=== PATIENT | female | born 1945 | race Caucasian/White ===

== ENCOUNTER 2020-04-21 14:39 | Outpatient (REF) | payer MEDICARE, SELFPAY ==
[2020-04-21 15:32] LABS: Creatinine Urine 34.57 mg/dL; Microalbumin Urine < 5.0 mg/L
== END 2020-04-21 14:40 | disposition home or self-care (01) ==
LOC: HO.LNP 14:39
PROVIDERS: Visit Provider Family Medicine
DX: I10 Essential (primary) hypertension (principal)
CPT/HCPCS: 82043

== ENCOUNTER 2020-05-07 09:49 | Outpatient (REF) | payer MEDICARE, SELFPAY ==
--- NOTE | ~2020-05-07 | XR_ITS ---
EXAMINATION: XR HIP, LEFT CLINICAL INFORMATION: Pain in left hip COMPARISON: None TECHNIQUE: Two views of the left hip. FINDINGS: Femoroacetabular Joint: There is flattening of the femoral head. There is also sclerosis and irregular lucency on both sides of the joint most evident in the femoral head. There is joint space narrowing and marginal osteophytes indicative of arthrosis. Postsurgical changes in the pelvis compatible with prior hernia repair. Surrounding bone and soft tissues are unremarkable. 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 If felt clinically necessary MRI of the hip may help differentiate these 2 possibilities.
--- NOTE | ~2020-05-07 | XR_ITS ---
EXAMINATION: XR KNEE, LEFT CLINICAL INFORMATION: Pain left knee COMPARISON: None TECHNIQUE: Four views of the left knee. FINDINGS: Bones and soft tissues are normal. No fracture or joint effusion. Alignment is anatomic. Joint spaces are well maintained. No abnormal soft tissue calcification. XR/XR knee LT 2V IMPRESSION: Normal left knee.
== END 2020-05-07 09:50 | disposition home or self-care (01) ==
LOC: HO.XRAY 09:49
PROVIDERS: PCP Family Medicine; Visit Provider Family Medicine
DX: M25.562 Pain in left knee (principal); M25.552 Pain in left hip
CPT/HCPCS: 73502; 73560

== ENCOUNTER 2020-05-31 07:39 | Outpatient (REF) | payer MEDICARE, SELFPAY ==
--- NOTE | ~2020-05-31 | XR_ITS ---
EXAMINATION: XR PELVIS CLINICAL INFORMATION: Hip pain COMPARISON: 05/07/2020 TECHNIQUE: AP view of the pelvis. FINDINGS: No acute fracture or dislocation. There are severe degenerative changes of the left hip. There is superior [id number] joint space narrowing with flattening of the femoral head. There is subchondral sclerosis with osteophyte formation and cyst formation. Mild to moderate degenerative change of the right hip with narrowing and osteophyte formation with subchondral sclerosis. The pelvic rim is intact. The sacroiliac joints and pubic symphysis are intact. Evidence of prior abdominal wall hernia repair. The bowel gas pattern is unremarkable. XR/XR pelvis 1-2V IMPRESSION: Severe degenerative changes of the left hip are similar to prior. Mild to moderate degenerative change of the right hip.
== END 2020-05-31 07:40 | disposition home or self-care (01) ==
LOC: HO.HOSX 07:39
PROVIDERS: Visit Provider Orthopaedic Surgery
DX: M16.12 Unilateral primary osteoarthritis, left hip (principal)
CPT/HCPCS: 72170; 99202

== ENCOUNTER → 2020-07-08 13:54 | Outpatient (BNVA) | payer MEDICARE, SELFPAY | PROVIDERS: PCP Family Medicine; Visit Provider Orthopaedic Surgery | DX: Z01.812 Encounter for preprocedural laboratory examination (principal); Z01.810 Encounter for preprocedural cardiovascular examination ==

== ENCOUNTER 2020-07-27 12:04 | Outpatient (REF) | payer MEDICARE, SELFPAY ==
[2020-07-27 13:51] LABS: Prothrombin Time 12.2 SEC (10.8-13.0)
[2020-07-27 13:53] LABS: Partial Thromboplastin Time 35.5 SEC (24.1-38.0)
[2020-07-27 14:17] LABS: Alanine Aminotransferase 15 U/L (0-31); Albumin Level 4.4 g/dL (3.5-5.0); Alkaline Phosphatase 86 U/L (39-117); Anion Gap 13 (12-20); Aspartate Amino Transferase 25 U/L (5-31); Bilirubin Total 1.5 mg/dL (0.0-1.0); Blood Urea Nitrogen 11 mg/dL (9-16); Calcium 9.7 mg/dL (8.4-10.2); Carbon Dioxide 28 mmol/L (22-29); Chloride 103 mmol/L (96-108); Estimated Glomerular Filt Rate > 60; Glucose Random 96 mg/dL (60-115); Potassium 4.2 mmol/L (3.3-5.1); Sodium 140 mmol/L (135-145); Total Protein 7.7 g/dL (6.5-8.0)
== END 2020-07-27 12:05 | disposition home or self-care (01) ==
LOC: HO.WFDLDS 12:04
PROVIDERS: Visit Provider Family Medicine
DX: Z01.810 Encounter for preprocedural cardiovascular examination (principal)
CPT/HCPCS: 36415; 80053; 85610; 85730

== ENCOUNTER 2020-07-30 11:30 | Outpatient (REF) | payer MEDICARE, SELFPAY ==
[2020-07-30 14:19] LABS: MANUAL DIFF FLAG NO
[2020-07-30 14:33] LABS: Basophils Percent Auto 0.8 % (0-2); Eosinophils Absolute Auto 0.2 X10*3/uL (0.0-0.4); Eosinophils Percent Auto 3.5 % (0-4); Hematocrit 46.8 % (37-47); Hemoglobin 15.7 g/dl (12.0-16.0); Imm Gran Abs Auto 0.01 X10*3/uL (0.00-0.03); Imm Gran Pct Auto 0.2 % (0.0-0.4); Lymphocytes Absolute Auto 2.1 X10*3/uL (1.2-4.9); Lymphocytes Percent Auto 43.1 % (20-40); Mean Corpuscular HGB Conc 33.5 g/dl (31.0-35.0); Mean Corpuscular Hemoglobin 32.7 pg (27.0-33.0); Mean Corpuscular Volume 97.5 fL (80-98); Mean Platelet Volume 9.2 fL (9.4-12.3); Monocytes Absolute Auto 0.5 X10*3/uL (0.1-1.2); Monocytes Percent Auto 10.8 % (2-11); Neutrophils Percent Auto 41.6 % (45-73); Platelet Count 232 X10*3/uL (160-400); Red Cell Distribution Width 11.7 % (11.0-16.0); White Blood Count 4.8 X10*3/uL (4.8-10.8)
== END 2020-07-30 11:31 | disposition home or self-care (01) ==
LOC: HO.WFDLDS 11:30
PROVIDERS: PCP Family Medicine; Visit Provider Family Medicine
DX: Z01.810 Encounter for preprocedural cardiovascular examination (principal)
CPT/HCPCS: 36415; 85025

== ENCOUNTER → 2020-08-05 13:50 | Outpatient (BNVA) | payer MEDICARE, SELFPAY | PROVIDERS: PCP Family Medicine; Visit Provider Physician Assistant | DX: M16.12 Unilateral primary osteoarthritis, left hip (principal) | CPT/HCPCS: 99212 ==

== ENCOUNTER 2020-08-10 11:35 | Inpatient (IN) | payer MEDICARE, SELFPAY ==
--- NOTE | 2020-08-04 15:02 | P.CONAN_ITS ---
Documented by User: Janki Perry 08/09/20 08:23 HPI - Anesthesia Eval Consult details Narrative: 75yo F for Left Hip Total Replacement PCP cleared at low risk BP up at PAT. Pt takes losartan prn SBP >140. Instructed to take daily leading up to surgery, hold DOS. PMFSH Active Problems Active Problems: All Active Problems (Updated 08/04/20 @ 09:33 by [place]) Essential hypertension (Acute) GERD (gastroesophageal reflux disease) (Acute) Hyperlipidemia (Acute) Left hip pain (Acute) Left knee pain (Acute) Depression (Acute) Preop cardiovascular exam (Acute) Past Medical History Medical History Arthritis COVID-19 vaccine administered Depression GERD (gastroesophageal reflux disease) HTN (hypertension) Hx of diverticulitis of colon Hyperlipidemia Family History Family History Father No problems noted. Mother No problems noted. Brother No problems noted. Sister No problems noted. Sister No problems noted. Son No problems noted. Family history of problems with anesthesia: No Surgical History Surgical History H/O colonoscopy History of esophagogastroduodenoscopy (EGD) History of incisional hernia repair History of partial colectomy History of surgery on left wrist History of Problems with Anesthesia: No Social History Social History Are you a primary pharmacy customer care specialist to a significant other at home: No Do you presently have visiting nurse or other home services: No Alcohol intake: never Patient Tobacco Use Status: Never used Tobacco Advance Directives Date on File: 08/10/20 Narrative Narrative: No recent illness. Activity limited to pain. No CP/SOB with minimal activity. Meds Allergies Allergy/AdvReac Type Severity Reaction Status Date / Time No Known Allergies Allergy Verified 07/27/20 11:11 Home Medications Medication Instructions Recorded Confirmed Last Taken Type escitalopram oxalate 10 mg PO DAILY PRN 08/05/20 08/05/20 Unknown History omeprazole 20 mg PO DAILY PRN 08/05/20 08/10/20 08/10/20 06:00 History Exam Exam Date and Time: August 04, 2020 1502 Pertinent Lab Results Pertinent Lab Results: Laboratory Tests 07/27/20 07/30/20 12:10 11:35 WBC 4.8 Hgb 15.7 Hct 46.8 Plt Count 232 Sodium 140 Potassium 4.2 Chloride 103 Carbon Dioxide 28 BUN 11 Creatinine 0.72 Laboratory Tests 08/05/20 13:45 Blood Type B Positive Antibody Screen NEGATIVE Narrative Narrative: EKG 06/2020 NSR ? LAE Airway Mallampati Class: I TM Dist: >3cm Denture: Upper Partial: Lower Heart: RRR Lungs: CTAB Assessment and Plan Assessment Anesthesia Assessment: Anesthesia Plan Discussed and PAT Visit Documented by User: Aura Ramirez 08/10/20 09:26 PMFSH Past Medical History Medical History Arthritis COVID-19 vaccine administered Depression GERD (gastroesophageal reflux disease) HTN (hypertension) Hx of diverticulitis of colon Hyperlipidemia Family History Family History Father No problems noted. Mother No problems noted. Brother No problems noted. Sister No problems noted. Sister No problems noted. Son No problems noted. Surgical History Surgical History H/O colonoscopy History of esophagogastroduodenoscopy (EGD) History of incisional hernia repair History of partial colectomy History of surgery on left wrist Social History Social History Are you a primary pharmacy customer care specialist to a significant other at home: No Do you presently have visiting nurse or other home services: No Alcohol intake: never Patient Tobacco Use Status: Never used Tobacco Advance Directives Date on File: 08/10/20 Meds Allergies Allergy/AdvReac Type Severity Reaction Status Date / Time No Known Allergies Allergy Verified 07/27/20 11:11 Home Medications Medication Instructions Recorded Confirmed Last Taken Type escitalopram oxalate 10 mg PO DAILY PRN 08/05/20 08/05/20 Unknown History omeprazole 20 mg PO DAILY PRN 08/05/20 08/10/20 08/10/20 06:00 History Assessment and Plan Assessment Anesthesia Assessment: Anesthesia Plan Discussed and Chart Reviewed Final Anesthetic Review NPO: Yes ASA Class: II Final Preanesthetic Review: No Changes in Pt Med Stat, Meds/Allgs Chart Reviewed, Consent Obtained/Reviewed and Anes Risks/Benef Reviewed Patient Risk: Low Procedure Risk: Intermediate Assessment/Block/Sedation in SS: Assess/Block/Sedation-SS Anesthetic Plan Anesthetic Plan: GA Disposition: Standard PACU
[2020-08-05 12:13] VITALS: BMI 26.2
[2020-08-05 12:28] VITALS: BP 183/105; PULSE 83; RESP 20; O2SAT 98
[2020-08-06 08:40] LABS: MRSA Nasal PCR NEGATIVE (Negative); SA Nasal PCR NEGATIVE (Negative)
[2020-08-10] VITALS (20 sets, daily range): BP systolic 101–180; BP diastolic 63–98; PULSE 75–101; RESP 14–20; TEMP 36–36.4; O2SAT 94–100
--- NOTE | ~2020-08-10 | XR_ITS ---
EXAMINATION: XR PELVIS CLINICAL INFORMATION: Left hip replacement COMPARISON: Previous x-ray most recent May 2020 TECHNIQUE: AP view of the pelvis. FINDINGS: There is a new left hip replacement in satisfactory position. No fracture or dislocation is seen. Bones of the pelvis are unremarkable. There is mild arthritis at the right hip joint. There is evidence of previous hernia repair. XR/XR pelvis 1-2V IMPRESSION: Satisfactory appearance of left hip replacement.
[2020-08-10] MEDS: oxyCODONE HCl ER 10 MG TAB.ER.12H PO (09:46)
[2020-08-10] MEDS: Gabapentin 600 MG TABLET PO (09:46)
[2020-08-10] MEDS: Lactated Ringers 1,000 ML 100 ML IVCONT (09:59)
[2020-08-10 10:02] LABS: COVID-19 Test Negative (Negative)
--- NOTE | 2020-08-10 10:14 | MHC.SHP ---
Pre-Procedural Eval Section A The patient is an INPATIENT: No Changes since office visit: Yes Patient answered all questions; No Cold of Flu in the past 2 weeks, No New Medical Problems and No Changes in Medication The History & Physical has been completed within 30 days and I have reviewed it.: Yes Section B Chief Complaint: Left Hip Osteoarthritis Allergies: Allergies Allergy/AdvReac Type Severity Reaction Status Date / Time No Known Allergies Allergy Verified 07/27/20 11:11 Plan I have reviewed the history and physical and performed a pertinent physical examination on my patient. No changes have occurred unless specified.
--- NOTE | 2020-08-10 10:40 | PC.NURSE ---
Call placed to lab for blood banding at 0900 when patient arrived. This RN spoke to Manolo. Additional call placed again at 1000, this RN spoke to Manolo, to question delay and remind them of banding that was needed. Lab arrived at [facility] for banding at 1035. Patients blood band information was not with them. Paperwork obtained and blood taken at 1043.
--- NOTE | 2020-08-10 12:51 | PM.OP ---
Brief Operative Note Date of Service: 08/10/20 Pre-op diagnosis: left hip OA Post-op diagnosis: same Procedure: Left OBINNA Implants: [place] trident2 52 with 20 deg liner Accolade2 #5 132deg, 36 +0 ceramic Surgeon: Donovan High MD Anesthesia: GETA and local Was an Director Of Digital Technology used for this Procedure?: Yes Director Of Digital Technology: Che Gottlieb Estimated blood loss (mL): 250 IV fluids (mL): 1,000 Pathology: other Condition: stable Disposition: PACU
[2020-08-10] MEDS: fentaNYL citrate/PF 100 MCG/2 ML VIAL 50 MCG IVPUSH ×3 (13:22→14:17)
[2020-08-10] MEDS: HYDROmorphone HCl 0.5 MG/0.5 ML SYRINGE IVPUSH ×3 (13:32→13:42)
[2020-08-10] MEDS: oxyCODONE HCl Immed Release 5 MG TABLET PO (13:52)
--- NOTE | 2020-08-10 16:20 | PM.IMCN ---
History of Present Illness Data of Consult Service Date: 08/10/20 Primary Care Provider: Roman Peterson MD HPI Reason for consult: htn 75F presented for elective left hip arthroplasty for ongoing left hip OA that was not improving with conservative management. patient reports that she is treated with losartan for her blood pressure, generally well controlled. she toelrated surgery well, denies pain, she is feeling somewhat weak. Review of Systems Cardiovascular: Cardiovascular: Reports no additional cardiovascular complaints Respiratory: Respiratory: Reports no additional respiratory complaints Gastrointestinal: Gastrointestinal: Reports no additional gastrointestinal complaints Musculoskeletal: Musculoskeletal: Reports no additional musculoskeletal complaints [facility] Medical History (Updated 08/10/20 @ 16:22 by Keo Flores MD) Arthritis COVID-19 vaccine administered Depression GERD (gastroesophageal reflux disease) HTN (hypertension) Hx of diverticulitis of colon Hyperlipidemia Family History Father No problems noted. Mother No problems noted. Brother No problems noted. Sister No problems noted. Sister No problems noted. Son No problems noted. Family history: reviewed and not pertinent Surgical History H/O colonoscopy History of esophagogastroduodenoscopy (EGD) History of incisional hernia repair History of partial colectomy History of surgery on left wrist Social History Are you a primary medicare insurance specialist to a significant other at home: No Do you presently have visiting nurse or other home services: No Alcohol intake: never Patient Tobacco Use Status: Never used Tobacco Use of substances other than those prescribed or required for medical reasons: No Have you been hit, kicked, punched, or otherwise hurt by someone within the past year? If so, by whom?: No Are you DNR?: No Advance Directives: Yes Advance Directives Information Provided: No (advised to bring copy day of surgery) Advance Directives on File: No Advance Directives Date on File: 08/10/20 Recently lost weight without trying: No Eating poorly because of decreased appetite: No Nutrition Risks: Surgical patient >75years Poor oral hygiene: No (full upper denture/lower partial denture) Meds Allergies Allergy/AdvReac Type Severity Reaction Status Date / Time No Known Allergies Allergy Verified 07/27/20 11:11 Active Medications: Current Medications Generic Name Dose Route Start Last Admin Trade Name Boaz PRN Reason Stop Dose Admin Acetaminophen 650 mg 08/10/20 16:09 Acetaminophen 325 Mg Tablet PO Q6H PRN Pain, Mild (Pain Scale 1-3) Celecoxib 200 mg 08/10/20 21:00 Celecoxib 200 Mg Capsule PO BID [facility] Docusate Sodium 100 mg 08/10/20 21:00 Docusate Sodium 100 Mg Capsule PO BID [facility] Fentanyl 50 mcg 08/10/20 13:40 08/10/20 14:17 Fentanyl Citrate/Pf 100 Mcg/2 Ml Vial IVPUSH 50 mcg Q5M PRN Administration Pain, Severe (Pain Scale 7-10) Hydromorphone HCl 0.25 mg 08/10/20 16:09 Hydromorphone Hcl 0.5 Mg/0.5 Ml Syringe IVPUSH Q4H PRN Pain, Severe (Pain Scale 7-10) Dextrose/Sodium Chloride 1,000 mls @ 80 mls/hr 08/10/20 16:09 D51/2ns IVCONT .[id number] [facility] Cefazolin Sodium/Dextrose 2 gm in 50 mls @ 100 mls/hr 08/10/20 16:50 Ancef IV 08/10/20 17:19 POSTOP ONE Naloxone HCl 0.2 mg 08/10/20 16:09 Naloxone Hcl 0.4 Mg/Ml Vial IVPUSH Q2M PRN Excessive sedation or RR < 8 Ondansetron HCl 4 mg 08/10/20 16:09 Ondansetron Hcl 4 Mg/2 Ml Vial IVPUSH Q8H PRN Nausea and Vomiting Oxycodone HCl 5 mg 08/10/20 16:09 Oxycodone Hcl Immed Release 5 Mg Tablet PO Q4H PRN Pain, Moderate (Pain Scale 4-6 Sodium Chloride 3 ml 08/10/20 16:09 0.9 % Sodium Chloride Flush 3 Ml [facility]ringe [facility] Home Medications Medication Instructions Recorded Confirmed Last Taken Type escitalopram oxalate 10 mg PO DAILY PRN 08/05/20 08/05/20 Unknown History omeprazole 20 mg PO DAILY PRN 08/05/20 08/10/20 08/10/20 06:00 History Physical Exam Vital Signs and Narrative: Vital Signs: Last Vital Signs Temp 96.8 F 08/10/20 15:55 Pulse 82 08/10/20 15:55 Resp 20 08/10/20 15:55 BP 145/83 H 08/10/20 15:55 Pulse Ox 100 08/10/20 15:55 Body Mass Index 26.2 General: AO X 3, no acute distress Resp: CTA bilateral CVS: S1,S2,RRR GI: soft, non tender, non distended Neuro: motor grossly intact Psych: appropriate affect Results Labs Labs: Laboratory Results - last 24 hr 08/10/20 09:05 COVID-19 ([facility]) Negative COVID-19 Clin Com See Note Imaging Radiologist's Impressions: Impressions Pelvis X-Ray 08/10/20 11:19 IMPRESSION: Satisfactory appearance of left hip replacement. Assessment and Plan (1) HTN (hypertension): Status: Acute 75F admitted for elective left hip arthroplasty left hip arthroplasty management per ortho HTN restart losartan if persistently bp elevated, otherwise, will hold perioperatively depression/anxiety lexapro GERD PPI
[2020-08-10] MEDS: Dextrose 5 % and 0.45 % NaCl 1,000 ML 80 ML IVCONT (16:28)
[2020-08-10] MEDS: ceFAZolin Sodium/Dextrose,Iso 2 GM/50 ML PIGGYBACK IV (17:03)
[2020-08-10] MEDS: ondansetron HCL 4 MG/2 ML VIAL IVPUSH (17:41)
[2020-08-10] MEDS: Celecoxib 200 MG CAPSULE PO (20:50)
[2020-08-10] MEDS: Docusate Sodium 100 MG CAPSULE PO (20:51)
[2020-08-11] VITALS (7 sets, daily range): BP systolic 96–123; BP diastolic 45–75; PULSE 67–89; RESP 16–19; TEMP 35.8–37.1; O2SAT 95–98
[2020-08-11] MEDS: oxyCODONE HCl Immed Release 5 MG TABLET PO ×5 (02:58→20:40)
[2020-08-11] MEDS: Dextrose 5 % and 0.45 % NaCl 1,000 ML 80 ML IVCONT ×2 (05:39→16:25)
[2020-08-11 07:03] LABS: MANUAL DIFF FLAG NO
[2020-08-11 07:12] LABS: Basophils Percent Auto 0.2 % (0-2); Eosinophils Percent Auto 0.3 % (0-4); Hematocrit 36.9 % (37-47); Hemoglobin 12.3 g/dl (12.0-16.0); Imm Gran Abs Auto 0.02 X10*3/uL (0.00-0.03); Imm Gran Pct Auto 0.3 % (0.0-0.4); Lymphocytes Absolute Auto 1.3 X10*3/uL (1.2-4.9); Lymphocytes Percent Auto 20.2 % (20-40); Mean Corpuscular HGB Conc 33.3 g/dl (31.0-35.0); Mean Corpuscular Hemoglobin 33.2 pg (27.0-33.0); Mean Corpuscular Volume 99.5 fL (80-98); Monocytes Absolute Auto 1.1 X10*3/uL (0.1-1.2); Monocytes Percent Auto 17.1 % (2-11); Neutrophils Percent Auto 61.9 % (45-73); Platelet Count 200 X10*3/uL (160-400); Red Blood Count 3.71 X10*6/uL (4.20-5.50); Red Cell Distribution Width 11.9 % (11.0-16.0); White Blood Count 6.5 X10*3/uL (4.8-10.8)
[2020-08-11] MEDS: Celecoxib 200 MG CAPSULE PO ×2 (07:26→20:39)
[2020-08-11] MEDS: Escitalopram Oxalate 10 MG TABLET PO (07:26)
[2020-08-11] MEDS: Docusate Sodium 100 MG CAPSULE PO ×2 (07:26→20:39)
[2020-08-11 07:41] LABS: Anion Gap 10 (12-20); Blood Urea Nitrogen 10 mg/dL (9-16); Calcium 8.2 mg/dL (8.4-10.2); Carbon Dioxide 26 mmol/L (22-29); Chloride 101 mmol/L (96-108); Creatinine Clr Calc Pharmacy 72.5; Estimated Glomerular Filt Rate > 60; Glucose Fasting 120 mg/dL (60-99); Potassium 4.5 mmol/L (3.3-5.1); Sodium 132 mmol/L (135-145)
--- NOTE | 2020-08-11 07:44 | P.PNOP_ITS ---
Subjective Subjective Date of Service: 08/11/20 Interval history: POD1 s/p left hip arthroplasty with Dr. High. Patient was working with [employer] up and walking and sitting into a chair. No overnight events. Pain is well managed. Physical Exam Vital Signs: Vital Signs: Last Vital Signs Temp 97.8 F 08/11/20 04:00 Pulse 76 08/11/20 04:00 Resp 16 08/11/20 04:00 BP 96/60 08/11/20 04:00 Pulse Ox 98 08/11/20 04:00 Oxygen Flow Rate 2 08/10/20 13:40 Body Mass Index 26.2 Const: General: cooperative, healthy appearing and no acute distress Resp: Effort & Inspection: normal respiratory effort and able to speak in complete sentences Cardio: Rate: regular rate Peripheral pulses: Peripheral pulses 2+ throughout GI: Palpation (GI): Soft to palpation Skin: Lesions: no lesions Rashes: no rashes Extrem: Other: Left hip Aquacel is clean, dry, and intact. No redness or ecchymosis. Patient is able to dorsiflex and plantarflex. Sensation intact. Progress Note: A&P Assessment and plan (1) Status post total replacement of left hip: Status: Acute Assessment and Plan: Continue pain mgmnt Begin ASA for dvt ppx begin PT for left OBINNA Dispo planning-Pending PT eval, pain mgmnt Fall Risk Details Current Medications: Current Medications Generic Name Dose Route Start Last Admin Trade Name Freq PRN Reason Stop Dose Admin Acetaminophen 650 mg 08/10/20 16:09 Acetaminophen 325 Mg Tablet PO Q6H PRN Pain, Mild (Pain Scale 1-3) Celecoxib 200 mg 08/10/20 21:00 08/11/20 07:26 Celecoxib 200 Mg Capsule PO 200 mg BID [facility] Administration Docusate Sodium 100 mg 08/10/20 21:00 08/11/20 07:26 Docusate Sodium 100 Mg Capsule PO 100 mg BID KAI Administration Escitalopram Oxalate 10 mg 08/10/20 16:20 08/11/20 07:26 Escitalopram Oxalate 10 Mg Tablet PO 10 mg DAILY PRN Administration Anxiety Fentanyl 50 mcg 08/10/20 13:40 08/10/20 14:17 Fentanyl Citrate/Pf 100 Mcg/2 Ml Vial IVPUSH 50 mcg Q5M PRN Administration Pain, Severe (Pain Scale 7-10) Hydromorphone HCl 0.25 mg 08/10/20 16:09 Hydromorphone Hcl 0.5 Mg/0.5 Ml Syringe IVPUSH Q4H PRN Pain, Severe (Pain Scale 7-10) Dextrose/Sodium Chloride 1,000 mls @ 80 mls/hr 08/10/20 16:09 08/11/20 07:30 D51/2ns IVCONT Infused .[id number] [facility] Infusion Naloxone HCl 0.2 mg 08/10/20 16:09 Naloxone Hcl 0.4 Mg/Ml Vial IVPUSH Q2M PRN Excessive sedation or RR < 8 Omeprazole 20 mg 08/10/20 16:20 Omeprazole 20 Mg Capsule.Dr PO DAILY PRN Acid Reflux Ondansetron HCl 4 mg 08/10/20 16:09 08/10/20 17:41 Ondansetron Hcl 4 Mg/2 Ml Vial IVPUSH 4 mg Q8H PRN Administration Nausea and Vomiting Oxycodone HCl 5 mg 08/10/20 16:08/11/20 07:27 Oxycodone Hcl Immed Release 5 Mg Tablet PO 5 mg Q4H PRN Administration Pain, Moderate (Pain Scale 4-6 Sodium Chloride 3 ml 08/10/20 16:09 08/11/20 07:29 0.9 % Sodium Chloride Flush 3 Ml Syringe IVFLUSH Not Given QSHIFT [facility] Time Spent With Patient Time: Total time spent is greater than 50% in coordination of care (as documented) at patient's floor/unit and/or counseling patient: Time with patient: less than 15 minutes Progress Note: Quality Stroke Does the patient have a stroke diagnosis?: No VTE Prior VTE?: No VTE Risk Level:: Surgical - moderate VTE Device Contraindication: N/A - Device Ordered VTE Drug Contraindication: N/A - Med Ordered Procedures Date of Service Date of Service: 08/11/20
[2020-08-11] MEDS: Aspirin 325 MG TABLET PO ×2 (11:01→20:40)
--- NOTE | 2020-08-11 11:19 | HO.POSTANES ---
Post Anesthesia Evaluation Post Anesthesia Evaluation Vital Signs: Vital Signs Temp Pulse Resp BP Pulse Ox 08/11/20 07:44 83 112/75 95 08/11/20 07:43 98.0 F 83 18 112/75 95 08/11/20 04:00 97.8 F 76 16 96/60 98 08/10/20 23:24 97.5 F 75 16 101/63 100 Anesthesia: General Mental Status: Awake Pain Control: Satisfactory Nausea/Vomiting: None Hydration: Adequate Anesthesia-Related Issues: No Anes. Related Issues
--- NOTE | 2020-08-11 11:58 | MHC.CM.PN ---
IMM 08/11/20, EMR REVIEWED PT ADMITTED S/P LEFT HIP ARTHROPLASTY, CM MET W/PT VIA [employer], PER PT SHE LIVES [place], PT REPORTS SOMEONE FROM SURGEONS OFFICE CAME TO HER HOME AND DID A HOME EVAL AND GAVE HER A LIST OF FOLLOW-UP APPTS, PER PT SHE ONLY NEEDS HOME OT/PT AND NO NURSING HOME, PT DOES NOT HAVE WALKER AT HOME AND THOUGHT [facility], WHEN TOLD [facility] UNABLE TO PROVIDE WALKER SHE REPORTED SHE WOULD CALL HER SISTER WHO WILL BRING HER A WALKER, PT HAS NO PREFERENCE IN [employer] AND REFERRAL WILL BE MADE TO [facility]. D/C PLAN: ANTIC 08/12/20 HOME W/HOME PT/OT, FAMILY FOR TRANSPORT PCP: GINI CALLAHAN
--- NOTE | 2020-08-11 16:00 | HO.PM.IMPN ---
Subjective Subjective Date of Service: 08/11/20 Interval History: Feels comfortable, no complaints Physical Exam Vital Signs: Vital Signs: Last Vital Signs Temp 96.5 F L 08/11/20 15:26 Pulse 89 08/11/20 15:26 Resp 19 08/11/20 15:26 BP 123/68 08/11/20 15:26 Pulse Ox 97 08/11/20 15:26 Oxygen Flow Rate 2 08/10/20 13:40 Body Mass Index 26.2 Const: Other: Constitutional : Alert, oriented, not in distress Cardiovascular : RRR, S1 S2, no lower extremity edema Respiratory : Good bilateral air entry, no crackles, wheezes or rhonchi Gastrointestinal: soft, lax, Normal bowel sounds, Non tender Skin : Warm/Dry, Knee in dressing Neurological : Alert & oriented x3, No focal deficit Objective Data Current Medications Generic Name Dose Route Start Last Admin Trade Name Freq PRN Reason Stop Dose Admin Acetaminophen 650 mg 08/10/20 16:09 Acetaminophen 325 Mg Tablet PO Q6H PRN Pain, Mild (Pain Scale 1-3) Aspirin 325 mg 08/11/20 09:00 08/11/20 11:01 Aspirin 325 Mg Tablet PO 325 mg BID KAI Administration Celecoxib 200 mg 08/10/20 21:00 08/11/20 07:26 Celecoxib 200 Mg Capsule PO 200 mg BID KAI Administration Docusate Sodium 100 mg 08/10/20 21:00 08/11/20 07:26 Docusate Sodium 100 Mg Capsule PO 100 mg BID KAI Administration Escitalopram Oxalate 10 mg 08/10/20 16:20 08/11/20 07:26 Escitalopram Oxalate 10 Mg Tablet PO 10 mg DAILY PRN Administration Anxiety Fentanyl 50 mcg 08/10/20 13:40 08/10/20 14:17 Fentanyl Citrate/Pf 100 Mcg/2 Ml Vial IVPUSH 50 mcg Q5M PRN Administration Pain, Severe (Pain Scale 7-10) Hydromorphone HCl 0.25 mg 08/10/20 16:09 Hydromorphone Hcl 0.5 Mg/0.5 Ml Syringe IVPUSH Q4H PRN Pain, Severe (Pain Scale 7-10) Dextrose/Sodium Chloride 1,000 mls @ 80 mls/hr 08/10/20 16:09 08/11/20 07:30 D51/2ns IVCONT Infused .[id number] [facility] Infusion Naloxone HCl 0.2 mg 08/10/20 16:09 Naloxone Hcl 0.4 Mg/Ml Vial IVPUSH Q2M PRN Excessive sedation or RR < 8 Omeprazole 20 mg 08/10/20 16:20 Omeprazole 20 Mg Capsule.Dr PO DAILY PRN Acid Reflux Ondansetron HCl 4 mg 08/10/20 16:09 08/10/20 17:41 Ondansetron Hcl 4 Mg/2 Ml Vial IVPUSH 4 mg Q8H PRN Administration Nausea and Vomiting Oxycodone HCl 5 mg 08/10/20 16:09 08/11/20 11:01 Oxycodone Hcl Immed Release 5 Mg Tablet PO 5 mg Q4H PRN Administration Pain, Moderate (Pain Scale 4-6 Sodium Chloride 3 ml 08/10/20 16:09 08/11/20 15:18 0.9 % Sodium Chloride Flush 3 Ml Syringe IVFLUSH Not Given QSHIFT [facility] Labs CBC & Chem 7: 08/11/20 06:48 08/11/20 06:48 Labs: Laboratory Results - last 24 hr 08/11/20 08/11/20 06:48 06:48 WBC 6.5 RBC 3.71 L D Hgb 12.3 D Hct 36.9 L D MCV 99.5 H MCH 33.2 H MCHC 33.3 RDW 11.9 Plt Count 200 MPV 9.0 L Immature Gran % (Auto) 0.3 Neut % (Auto) 61.9 Lymph % (Auto) 20.2 [place] % (Auto) 17.1 H Eos % (Auto) 0.3 Baso % (Auto) 0.2 Lymph # (Auto) 1.3 [place] # (Auto) 1.1 Eos # (Auto) 0.0 Baso # (Auto) 0.0 Abs Immat Gran (auto) 0.02 Absolute Neuts (auto) 4.0 Absolute Nucleated RBC 0.000 Nucleated RBC % (auto) 0.0 Sodium 132 L Potassium 4.5 Chloride 101 Carbon Dioxide 26 Anion Gap 10 L BUN 10 Creatinine 0.64 Estim Creat Clear Calc 72.5 Estimated GFR > 60 Fasting Glucose 120 H Calcium 8.2 L D Quality Stroke Does the patient have a stroke diagnosis?: No VTE Prior VTE?: No VTE Risk Level:: Surgical - moderate VTE Device Contraindication: N/A - Device Ordered VTE Drug Contraindication: N/A - Med Ordered Assessment and Plan (1) HTN (hypertension): Status: Acute Assessment and Plan: 75F admitted for elective left hip arthroplasty left hip arthroplasty management per ortho HTN restart losartan at discharge depression/anxiety continue lexapro GERD PPI
[2020-08-11] MEDS: Acetaminophen 325 MG TABLET 650 MG PO (16:23)
--- NOTE | 2020-08-11 17:56 | PC.NURSE ---
Pt assessed with the assist of VIKTOR Potter interpreting in taiwanese. Pt medicated for pain with po oxycodone and tylenol with good effect. Reviewed activity restrictions with pt. Pt verbalized understanding
[2020-08-12] VITALS: BP 105/66; PULSE 86; RESP 16; TEMP 36.6; O2SAT 94
[2020-08-12 03:45] VITALS: BP 95/59; PULSE 87; RESP 16; TEMP 36.5; O2SAT 93
[2020-08-12 06:21] LABS: MANUAL DIFF FLAG NO
[2020-08-12 07:03] LABS: Anion Gap 10 (12-20); Basophils Percent Auto 0.1 % (0-2); Blood Urea Nitrogen 11 mg/dL (9-16); Calcium 8.1 mg/dL (8.4-10.2); Carbon Dioxide 25 mmol/L (22-29); Chloride 101 mmol/L (96-108); Creatinine Clr Calc Pharmacy 71.4; Eosinophils Percent Auto 0.4 % (0-4); Estimated Glomerular Filt Rate > 60; Glucose Fasting 122 mg/dL (60-99); Hematocrit 33.4 % (37-47); Hemoglobin 11.3 g/dl (12.0-16.0); Imm Gran Abs Auto 0.02 X10*3/uL (0.00-0.03); Imm Gran Pct Auto 0.3 % (0.0-0.4); Lymphocytes Absolute Auto 1.1 X10*3/uL (1.2-4.9); Lymphocytes Percent Auto 15.2 % (20-40); Mean Corpuscular HGB Conc 33.8 g/dl (31.0-35.0); Mean Corpuscular Hemoglobin 32.8 pg (27.0-33.0); Mean Corpuscular Volume 96.8 fL (80-98); Mean Platelet Volume 9.3 fL (9.4-12.3); Monocytes Absolute Auto 1.4 X10*3/uL (0.1-1.2); Monocytes Percent Auto 18.9 % (2-11); Neutrophils Absolute Auto 4.7 X10*3/uL (2.0-8.3); Neutrophils Percent Auto 65.1 % (45-73); Platelet Count 199 X10*3/uL (160-400); Potassium 4.4 mmol/L (3.3-5.1); Red Blood Count 3.45 X10*6/uL (4.20-5.50); Red Cell Distribution Width 11.9 % (11.0-16.0); Sodium 132 mmol/L (135-145); White Blood Count 7.2 X10*3/uL (4.8-10.8)
--- NOTE | 2020-08-12 07:30 | P.DS_ITS ---
DS: Providers Provider Date of Service: 08/12/20 Date of admission: 08/10/20 11:35 Primary care physician: Roman Peterson MD Consults: 08/10/20 16:09 Consult to Hospitalist Routine Consulting Provider: Hospitalist Reason For Exam: post op medical management DS: Diagnosis Discharge Diagnosis (1) Status post total replacement of left hip: Status: Acute Problem details: Ms. Nicholson is a 75 yo female who presented to the office with ongoing left pain. 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 She continued to have difficulty with abulation and daily activities; therefore she consented to move forward with left total hip arthroplasty. DS: Medications Discharge Medications Home Medications: Home Medications Medication Instructions Recorded Confirmed escitalopram oxalate 10 mg PO DAILY PRN 08/05/20 08/05/20 omeprazole 20 mg PO DAILY PRN 08/05/20 08/10/20 Previous Rx's Medication Instructions Recorded losartan 50 mg tablet 50 mg PO DAILY 30 Days #30 tab 05/19/20 acetaminophen 650 mg PO Q6H PRN 30 Days #240 tab 08/12/20 aspirin 325 mg PO BID 42 Days #84 tab 08/12/20 celecoxib 200 mg PO BID 30 Days #60 cap 08/12/20 docusate sodium 100 mg PO BID 30 Days #60 cap 08/12/20 oxycodone 5 mg PO Q4H PRN 7 Days #42 tab 08/12/20 DS: Summary Hospital Course Hospital Course: The patient underwent a successful left total hip arthroplasty, they were transferred to PACU and then to the floor to recover. During their stay, their vitals were stable, afebrile at 97.7. Labs were unremarkable, H/H 11.3/33.4. POD 1 they were started on Aspirin 325mg po bid for DVT ppx, they also received Physical Therapy services twice a day. Prior to discharge, their dressing was changed, incision clean dry and intact, new Aquacel dressing applied and the plan was to be discharged home with VNA services. Time Spent with Patient Time attestation: Total time spent providing and/or coordinating discharge services: Discharge coordination time: Less than 30 minutes Quality: Stroke Does the patient have a stroke diagnosis?: No Physical Exam Vital Signs: Vital Signs: Last Vital Signs Temp 97.7 F 08/12/20 03:45 Pulse 87 08/12/20 03:45 Resp 16 08/12/20 03:45 BP 95/59 L 08/12/20 03:45 Pulse Ox 93 08/12/20 03:45 Oxygen Flow Rate 2 08/10/20 13:40 Body Mass Index 26.2 Const: General: cooperative, healthy appearing and no acute distress Resp: Effort & Inspection: normal respiratory effort and able to speak in complete sentences Cardio: Rate: regular rate Peripheral pulses: Peripheral pulses 2+ throughout GI: Palpation (GI): Soft to palpation Skin: Lesions: no lesions Rashes: no rashes Extrem: Other: Left hip Aquacel dressing clean, dry, and intact. [place] intact. No drainage. Patient is able to dorsifelx and platarflex. Pedal pulse intact. Sensation intact. DS: Data Data Completed and Pending Pending studies at discharge: Pending at discharge 08/10/20 12:37 Surgical [PTH] Routine Labs on day of discharge: Laboratory Results - last 24 hr 08/11/20 08/12/20 08/12/20 06:48 05:59 05:59 WBC 7.2 RBC 3.45 L Hgb 11.3 L Hct 33.4 L MCV 96.8 MCH 32.8 MCHC 33.8 RDW 11.9 Plt Count 199 MPV 9.3 L Immature Gran % (Auto) 0.3 Neut % (Auto) 65.1 Lymph % (Auto) 15.2 L [place] % (Auto) 18.9 H Eos % (Auto) 0.4 Baso % (Auto) 0.1 Lymph # (Auto) 1.1 L [place] # (Auto) 1.4 H Eos # (Auto) 0.0 Baso # (Auto) 0.0 Abs Immat Gran (auto) 0.02 Absolute Neuts (auto) 4.7 Absolute Nucleated RBC 0.000 Nucleated RBC % (auto) 0.0 Sodium 132 L 132 L Potassium 4.5 4.4 Chloride 101 101 Carbon Dioxide 26 25 Anion Gap 10 L 10 L BUN 10 11 Creatinine 0.64 0.65 Estim Creat Clear Calc 72.5 71.4 Estimated GFR > 60 > 60 Fasting Glucose 120 H 122 H Calcium 8.2 L D 8.1 L Discharge Plan Discharge Patient Disposition: Home Health Service Discharge Diagnosis: s/p left OBINNA Referrals: Kristen,Roman, MD [Primary Care Provider] - 1 Week Discharge Medications: New celecoxib 200 mg Capsule 200 mg PO BID 30 Days Qty: 60 RF: 0 acetaminophen 325 mg Tablet 650 mg PO Q6H PRN (Reason: Pain, Mild (Pain Scale 1-3)) 30 Days Qty: 240 RF: 0 aspirin 325 mg Tablet 325 mg PO BID 42 Days Qty: 84 RF: 0 docusate sodium 100 mg Capsule 100 mg PO BID 30 Days Qty: 60 RF: 0 oxycodone 5 mg Tablet 5 mg PO Q4H PRN (Reason: Pain, Moderate (Pain Scale 4-6) 7 Days Qty: 42 RF: 0 Continued omeprazole 20 mg capsule,delayed release(DR/EC) 20 mg PO DAILY PRN (Reason: Acid Reflux) RF: 0 escitalopram oxalate 10 mg tablet 10 mg PO DAILY PRN (Reason: Anxiety) RF: 0 losartan 50 mg tablet 50 mg PO DAILY 30 Days Qty: 30 RF: 2 Discharge Orders: Discharge Order (Routine); Ordered 08/12/20 Ordered By: Temitope Leach Diet: advance to usual diet Activity on Discharge: Use cane or walker Stand Alone Forms: Patient Portal Discharge page Care Plan Goals: Restor fxn of lt hip Health Concerns: none Plan of Treatment: Physical Therapy for total hip arthroplasty: posterior precautions, gait training, ROM, strength Limit stair climbing No showering, no tub bath-keep dressing clean, dry and intact No driving x6 weeks Continue Aspirin for 6 weeks Follow up with [facility] in 2 weeks Assessment: stable for d/c
--- NOTE | 2020-08-12 07:44 | W.MHC.F2F ---
Service Date Service Date: 08/12/20 Encounter Encounter: Pt. is considered homebound due to recent surgery. Unable to drive, poor balance, poor gait mechanics. Reasons for Services Reason for physical therapy: home safety and mobility, therapeutic exercises, restore joint function and ADL training Reason for occupational therapy: home safety and mobility, therapeutic exercises, restore joint function and ADL training Homebound: Leaving the home is medically contraindicated at this time without the asist of a device and/or another person due th the listed conditions above and below. Reason homebound: unsteady gait / fall risk, pain with ambulation, pain with transfers and poor balance / fall risk Homebound supporting statement: Pt. is considered homebound due to recent surgery. Unable to drive, poor balance, poor gait mechanics. Certification: Based on the above findings, I certify that this patient is confined to the home and needs intermittent intermediate care, physical therapy and/or speech therapy, or continues to need occupational therapy. The patient is under my care, and I have initiated the establishment of the plan of care. The patient will be followed by a physician who will periodically review the plan of care.
[2020-08-12 07:46] VITALS: BP 119/62; PULSE 91; RESP 18; TEMP 36.5; O2SAT 98
[2020-08-12] MEDS: Aspirin 325 MG TABLET PO (07:56)
[2020-08-12] MEDS: oxyCODONE HCl Immed Release 5 MG TABLET PO (07:56)
[2020-08-12] MEDS: Docusate Sodium 100 MG CAPSULE PO (07:57)
[2020-08-12] MEDS: Celecoxib 200 MG CAPSULE PO (07:59)
[2020-08-12 08:25] VITALS: BP 119/62; PULSE 91; O2SAT 98
--- NOTE | 2020-08-12 09:56 | P.OP_ITS ---
Operative Note Operative Note Date of Service: 08/10/20 Narrative: Pre-op diagnosis: left hip OA Post-op diagnosis: same Procedure: Left OBINNA Implants: Fillmore trident2 52 with 20 deg liner Accolade2 #5 132deg, 36 +0 ceramic Surgeon: Donovan High MD Anesthesia: GETA and local Was an Administrative Support Technician used for this Procedure?: Yes Administrative Support Technician: Che Gottlieb Estimated blood loss (mL): 250 IV fluids (mL): 1,000 Pathology: other Condition: stable Disposition: PACU Procedure in detail: Patient was brought into the operating room and placed in a right lateral decubitus position. All bony prominences were well padded and the limb was prepped and draped in standard sterile fashion. Time-out was called to identify proper site procedure proper surgeon IV antibiotics and 1 g of trans to make acid were administered. I began by making a curvilinear incision over the posterolateral aspect of the greater trochanter. Dissection was taken down to the tensor fascia which was incised in line with the incision and a Charnley retractor was placed. Hip was internally rotated and the external rotators were identified. The vessels were cauterized and a full-thickness capsular/external rotator layer was developed starting just proximal to the piriformis. Dull Hohmann retractor was placed underneath the neck in the hip was dislocated. The head was defrormed and eburnated. A neck cut was made 1 cm proximal to the lesser trochanter and the head and neck were removed and measured on the back table. Placed my anterior-posterior acetabular retractors and performed a labrectomy. I then sequentially reamed up to a size _52_ . THe superior cup was worn therefore I impacted reaming in the superior acetabulm and impacted a __52 cup_ at approximately 45 degrees of inclination and 25 degrees of version. Given the superior wear I placed 2 acetabular screws using standard AO technique. I then placed a 20 degree posterior lipped liner and turned my attention to the femur. All I used cautery to identify the piriformis start site and used this as a starting point for my david cutter. I then used a Charnley awl to identify the canal and a curved curette to remove the lateral bone. I then sequentially broached in the patient's natural version to a size __5__ had and placed my trial implants. I took the hip through range of motion with a +0 head and I was very satisfiedwith the stability and length. Therefore removed all instrumentation copiously irrigated placed my final femoral implant. I again took the hip through range of motion and was satisfied with the stability and length using a +0 head and so my final femoral head was placed. I then irrigated for 3 minutes with iodine and placed 1 g of local TXA. I then performed a capsular closure with FiberWire, Shira's fascia with 0 Vicryl, subcuticular with 2-0 vicryl and skin with jewell. Patient was placed into a sterile dressing. Radiographs were obtained at the completion of the case and I was satisfied with the component position. Patient was extubated brought to the recovery room in stable condition.
--- NOTE | 2020-08-12 10:02 | HO.PM.IMPN ---
Subjective Subjective Date of Service: 08/12/20 Interval History: Feels comfortable, no complaints Dressed and ready to go home BP soft this morning Physical Exam Vital Signs: Vital Signs: Last Vital Signs Temp 97.7 F 08/12/20 07:46 Pulse 91 08/12/20 08:25 Resp 18 08/12/20 07:46 BP 119/62 08/12/20 08:25 Pulse Ox 98 08/12/20 08:25 Oxygen Flow Rate 2 08/10/20 13:40 Body Mass Index 26.2 Const: Other: Constitutional : Alert, oriented, not in distress Cardiovascular : RRR, S1 S2, no lower extremity edema Respiratory : Good bilateral air entry, no crackles, wheezes or rhonchi Gastrointestinal: soft, lax, Normal bowel sounds, Non tender Skin : Warm/Dry, Knee in dressing Neurological : Alert & oriented x3, No focal deficit Objective Data Current Medications Generic Name Dose Route Start Last Admin Trade Name Freq PRN Reason Stop Dose Admin Acetaminophen 650 mg 08/10/20 16:09 08/11/20 16:23 Acetaminophen 325 Mg Tablet PO 650 mg Q6H PRN Administration Pain, Mild (Pain Scale 1-3) Aspirin 325 mg 08/11/20 09:00 08/12/20 07:56 Aspirin 325 Mg Tablet PO 325 mg BID KAI Administration Celecoxib 200 mg 08/10/20 21:00 08/12/20 07:59 Celecoxib 200 Mg Capsule PO 200 mg BID KAI Administration Docusate Sodium 100 mg 08/10/20 21:00 08/12/20 07:57 Docusate Sodium 100 Mg Capsule PO 100 mg BID KAI Administration Escitalopram Oxalate 10 mg 08/10/20 16:20 08/11/20 07:26 Escitalopram Oxalate 10 Mg Tablet PO 10 mg DAILY PRN Administration Anxiety Fentanyl 50 mcg 08/10/20 13:40 08/10/20 14:17 Fentanyl Citrate/Pf 100 Mcg/2 Ml Vial IVPUSH 50 mcg Q5M PRN Administration Pain, Severe (Pain Scale 7-10) Hydromorphone HCl 0.25 mg 08/10/20 16:09 Hydromorphone Hcl 0.5 Mg/0.5 Ml Syringe IVPUSH Q4H PRN Pain, Severe (Pain Scale 7-10) Dextrose/Sodium Chloride 1,000 mls @ 80 mls/hr 08/10/20 16:09 08/12/20 07:11 D51/2ns IVCONT Infused .[id number] KAI Infusion Naloxone HCl 0.2 mg 08/10/20 16:09 Naloxone Hcl 0.4 Mg/Ml Vial IVPUSH Q2M PRN Excessive sedation or RR < 8 Omeprazole 20 mg 08/10/20 16:20 Omeprazole 20 Mg Capsule.Dr PO DAILY PRN Acid Reflux Ondansetron HCl 4 mg 08/10/20 16:09 08/10/20 17:41 Ondansetron Hcl 4 Mg/2 Ml Vial IVPUSH 4 mg Q8H PRN Administration Nausea and Vomiting Oxycodone HCl 5 mg 08/10/20 16:09 08/12/20 07:56 Oxycodone Hcl Immed Release 5 Mg Tablet PO 5 mg Q4H PRN Administration Pain, Moderate (Pain Scale 4-6 Sodium Chloride 3 ml 08/10/20 16:09 08/12/20 07:57 0.9 % Sodium Chloride Flush 3 Ml Syringe IVFLUSH Not Given QSHIFT [facility] Labs CBC & Chem 7: 08/12/20 05:59 08/12/20 05:59 Labs: Laboratory Results - last 24 hr 08/12/20 08/12/20 05:59 05:59 WBC 7.2 RBC 3.45 L Hgb 11.3 L Hct 33.4 L MCV 96.8 MCH 32.8 MCHC 33.8 RDW 11.9 Plt Count 199 MPV 9.3 L Immature Gran % (Auto) 0.3 Neut % (Auto) 65.1 Lymph % (Auto) 15.2 L [place] % (Auto) 18.9 H Eos % (Auto) 0.4 Baso % (Auto) 0.1 Lymph # (Auto) 1.1 L [place] # (Auto) 1.4 H Eos # (Auto) 0.0 Baso # (Auto) 0.0 Abs Immat Gran (auto) 0.02 Absolute Neuts (auto) 4.7 Absolute Nucleated RBC 0.000 Nucleated RBC % (auto) 0.0 Sodium 132 L Potassium 4.4 Chloride 101 Carbon Dioxide 25 Anion Gap 10 L BUN 11 Creatinine 0.65 Estim Creat Clear Calc 71.4 Estimated GFR > 60 Fasting Glucose 122 H Calcium 8.1 L Quality Stroke Does the patient have a stroke diagnosis?: No VTE Prior VTE?: No VTE Risk Level:: Surgical - moderate VTE Device Contraindication: N/A - Device Ordered VTE Drug Contraindication: N/A - Med Ordered Assessment and Plan (1) HTN (hypertension): Status: Acute Assessment and Plan: 75F admitted for elective left hip arthroplasty left hip arthroplasty management per ortho HTN restart losartan at home depression/anxiety continue lexapro GERD PPI
[2020-08-12 11:04] VITALS: BP 119/62; PULSE 91; O2SAT 98
[2020-08-12 11:36] VITALS: BP 115/69; PULSE 84; RESP 17; TEMP 36.6; O2SAT 98
--- NOTE | 2020-08-12 14:57 | MHC.CM.PN ---
PT DISCHARGED HOME W/HVNA FOR HOME OT/PT W/START OF CARE Sunday08/12/20, FAMILY PROVIDED TRANSPORT
== END 2020-08-12 13:59 | disposition home health service (06) | DRG 470 ==
LOC: HO.SSSA 11:42 → HO.S3 14:10
PROVIDERS: Physician Assistant; Admitting Provider Orthopaedic Surgery; PCP Family Medicine; Visit Provider Orthopaedic Surgery
PROC: 0SRB0JA Replacement of Left Hip Joint with Synthetic Substitute, Uncemented, Open Approach (ICD-10-PCS; CPT 27130; principal; 2020-08-10 10:40)
DX: M16.12 Unilateral primary osteoarthritis, left hip (principal); K21.9 Gastro-esophageal reflux disease without esophagitis; I10 Essential (primary) hypertension; E78.5 Hyperlipidemia, unspecified; F32.9 Major depressive disorder, single episode, unspecified; F41.9 Anxiety disorder, unspecified; Z20.822 Contact with and (suspected) exposure to COVID-19; Z79.899 Other long term (current) drug therapy
CPT/HCPCS: 27130; 36415; 72170; 80048; 85025; 86850; 86900; 86901; 87635; 87640; 87641; 88304; 88311; 97110; 97116; 97162; 97166; 97530; 97535; C1713; C1776; J0131; J0690; J1100; J1170; J2250; J2405; J3010

== ENCOUNTER → 2020-08-26 13:07 | Outpatient (BNVA) | payer MEDICARE, SELFPAY | PROVIDERS: Visit Provider Physician Assistant | DX: Z47.1 Aftercare following joint replacement surgery (principal); Z96.642 Presence of left artificial hip joint | CPT/HCPCS: 99212 ==

== ENCOUNTER 2020-09-23 12:34 | Outpatient (REF) | payer MEDICARE, SELFPAY ==
--- NOTE | ~2020-09-23 | XR_ITS ---
EXAMINATION: 1. PELVIS. 2. LEFT HIP. CLINICAL INFORMATION: Pain. COMPARISON: Pelvis August 10, 2020, May 31, 2020. Left hip May 07, 2020 TECHNIQUE: 1. Pelvis. Frontal view of pelvis. 2. Left hip. Frontal and oblique view of left hip. FINDINGS: 1. Pelvis. Status post left hip replacement. Orthopedic components in position. No fracture or radiographic evidence of loosening of the prosthesis. Mild joint narrowing of the right hip joint without bone spur or bone erosion. No change since prior study August 10, 2020. Mild degenerative spondylosis lower lumbar spine. Status post hernia repair with surgical coils along the superior and inferior pubic ramus and symphysis pubis. Surgical sutures in the central pelvis. Surgical clips right side of pelvis. Moderate volume of stool in colon. No distended loop of bowel. Nonobstructive bowel pattern. 2. Left hip. Status post left hip replacement. Orthopedic components in position. No fracture or radiographic evidence of loosening of the prosthesis. No fracture. No dislocation. XR/XR pelvis 1-2V IMPRESSION: 1. Pelvis. Status post left hip replacement. Postsurgical changes of pelvis. Mild degenerative change of right hip and lower lumbar spine. 2. Left hip. Status post hip replacement. No fracture or dislocation. No radiographic evidence of loosening.
--- NOTE | ~2020-09-23 | XR_ITS ---
EXAMINATION: 1. PELVIS. 2. LEFT HIP. CLINICAL INFORMATION: Pain. COMPARISON: Pelvis August 10, 2020, May 31, 2020. Left hip May 07, 2020 TECHNIQUE: 1. Pelvis. Frontal view of pelvis. 2. Left hip. Frontal and oblique view of left hip. FINDINGS: 1. Pelvis. Status post left hip replacement. Orthopedic components in position. No fracture or radiographic evidence of loosening of the prosthesis. Mild joint narrowing of the right hip joint without bone spur or bone erosion. No change since prior study August 10, 2020. Mild degenerative spondylosis lower lumbar spine. Status post hernia repair with surgical coils along the superior and inferior pubic ramus and symphysis pubis. Surgical sutures in the central pelvis. Surgical clips right side of pelvis. Moderate volume of stool in colon. No distended loop of bowel. Nonobstructive bowel pattern. 2. Left hip. Status post left hip replacement. Orthopedic components in position. No fracture or radiographic evidence of loosening of the prosthesis. No fracture. No dislocation. XR/XR hip LT 1V IMPRESSION: 1. Pelvis. Status post left hip replacement. Postsurgical changes of pelvis. Mild degenerative change of right hip and lower lumbar spine. 2. Left hip. Status post hip replacement. No fracture or dislocation. No radiographic evidence of loosening.
== END 2020-09-23 12:35 | disposition home or self-care (01) ==
LOC: HO.HOSX 12:34
PROVIDERS: Visit Provider Orthopaedic Surgery
DX: T84.84XA Pain due to internal orthopedic prosthetic devices, implants and grafts, initial encounter (principal); Z96.642 Presence of left artificial hip joint
CPT/HCPCS: 72170; 73501; 73502; 99212

== ENCOUNTER 2020-10-28 17:00 | Outpatient (RCR) | payer MEDICARE, SELFPAY ==
--- NOTE | 2020-09-16 15:25 | MHC.PT.EP ---
[facility] [place] Office [place] Office [place] Office [address] Mika Zuleat [address] [phone] F: [phone] F: [phone] F: [phone] F: [phone] Physical Therapy Plan of Care Date of Evaluation: Date of Surgery: 08/10/20 Diagnosis: left OBINNA Assessment: 75 y/o F referred for PT following L posterior OBINNA on 08/10/20. Pt received home PT services for 3 weeks following surgery. Pt presents with discomfort and difficulty with prolonged walking, navigating stairs, and sleeping. Examination shows decreased L hip strength, limited L hip abduction ROM, pain at 90 degrees L hip flexion, poor L quad contraction with mild extensor lag with L SLR, impaired bed mobility, and impaired gait mechanics with increased L hip IR, L foot pronation, L genu valgus, and limited pelvic mobility. Reviewed hip precautions. Recommend PT 2x/week for 6 weeks to address impairments, implement HEP, and optimize functional mobility. Frequency and Duration: The patient will be seen 2x/week for 6 weeks Short Term Goals: 3 weeks: 1. I with HEP 2. Pt will demonstrate improved bed mobility while maintaining hip precautions 3. Pt will demonstrate improved L quad activation with L SLR with no extensor lag 4. Pt will increase L hip abduction ROM by >5 degrees to match R LE [facility] Goals: 6 weeks: 1. I with HEP and self-management of sx 2. Pt will be able to navigate stairs using step-through pattern with LRAD and <3/10 pain 3. Pt will be able to ambulate >30 min with <3/10 pain Treatment Plan: Modalities to reduce pain, spasms and effusion. Manual therapy to restore motion and function. Therapeutic exercise to improve strength and flexibility. Neuromuscular re-education for posture and balance. Therapeutic activities to return to functional activities of daily living. Electronically signed by: Ruthie Lozada PT Please sign and return to therapist. Thank you for your referral.
--- NOTE | 2020-10-28 18:09 | MHC.PT.DC ---
[facility] [place] Office [place] Office [place] Office [address] Mika Zuleta [address] [phone] F: [phone] F: [phone] F: [phone] F: [phone] Physical Therapy Discharge Report Diagnosis: left OBINNA Date of Surgery: 08/10/20 Date of Evaluation: 09/16/20 Date of Discharge: 10/28/20 Treatments to Date: 8 Cancellations to Date: 4 No Shows to Date: 0 Discharge Status: Achieved Goals Improved Function Independent with HEP Discharge Summary: Pt has made excellent progress since SOC and has made great progress toward her STGs and LTGs. She has improved strength throughout her L hip and does not have pain. She is able to ambulate community distances without AD and navigates stairs with reciprocal pattern when a railing on R side is available. She is I with HEP and is being D/C from skilled PT services at this time. Provided pt with printed, updated HEP program and YTB this date. Pt reports no further questions or concerns for PT at this time. Electronically signed by: Tia Weeks, PT, DPT Please sign and return to therapist. Thank you for your referral.
== END 2020-10-28 18:09 | disposition home or self-care (01) ==
LOC: HO.PT 17:00
PROVIDERS: PCP Family Medicine; Visit Provider Physician Assistant
DX: Z96.642 Presence of left artificial hip joint (principal)
CPT/HCPCS: 97110; 97112; 97150; 97161; 97530

== ENCOUNTER → 2020-11-04 13:23 | Outpatient (BNVA) | payer MEDICARE, SELFPAY | PROVIDERS: Visit Provider Orthopaedic Surgery | DX: Z47.1 Aftercare following joint replacement surgery (principal); Z96.642 Presence of left artificial hip joint | CPT/HCPCS: 99212 ==

== ENCOUNTER 2021-07-08 10:49 | Outpatient (REF) | payer MEDICARE, SELFPAY ==
[2021-07-08 13:29] LABS: MANUAL DIFF FLAG NO
[2021-07-08 13:31] LABS: Eosinophils Absolute Auto 0.2 X10*3/uL (0.0-0.4); Eosinophils Percent Auto 3.6 % (0-4); Hematocrit 45.1 % (37.0-47.0); Hemoglobin 15.3 g/dl (12.0-16.0); Imm Gran Abs Auto 0.01 X10*3/uL (0.00-0.03); Imm Gran Pct Auto 0.2 % (0.0-0.4); Lymphocytes Absolute Auto 1.8 X10*3/uL (1.2-4.9); Lymphocytes Percent Auto 43.9 % (20-40); Mean Corpuscular HGB Conc 33.9 g/dl (31.0-35.0); Mean Corpuscular Hemoglobin 32.7 pg (27.0-33.0); Mean Corpuscular Volume 96.4 fL (80.0-98.0); Monocytes Absolute Auto 0.4 X10*3/uL (0.1-1.2); Monocytes Percent Auto 10.2 % (2-11); Neutrophils Absolute Auto 1.7 x10*3/uL (2.0-8.3); Neutrophils Percent Auto 41.1 % (45-73); Platelet Count 247 X10*3/uL (160-400); Red Blood Count 4.68 X10*6/uL (4.20-5.50); Red Cell Distribution Width 12.6 % (11.0-16.0); White Blood Count 4.1 X10*3/uL (4.8-10.8)
[2021-07-08 13:35] LABS: Appearance Urine CLOUDY; Color Urine YELLOW; Glucose Urine UA NEG (NEG); Leukocyte Esterase Urine 2+ (NEG); Nitrite Urine POS (NEG); PH 5.5 (5.0-8.0); Specific Gravity - Urine 1.025 (1.005-1.025); Urine Blood TRACE (NEG); Urine Ketones NEG (NEG); Urine Protein NEG (NEG-TRACE)
[2021-07-08 13:40] LABS: Amorphous Sediment Urine 4+ /LPF
[2021-07-08 13:41] LABS: Alanine Aminotransferase 10 U/L (0-31); Albumin Level 4.2 g/dL (3.5-5.0); Alkaline Phosphatase 75 U/L (39-117); Anion Gap 12 (12-20); Aspartate Amino Transferase 17 U/L (5-31); Blood Urea Nitrogen 10 mg/dL (9-16); Calcium 9.4 mg/dL (8.4-10.2); Carbon Dioxide 28 mmol/L (22-29); Chloride 103 mmol/L (96-108); Cholesterol 226 mg/dL; Estimated Glomerular Filt Rate > 60; Glucose Fasting 91 mg/dL (60-99); HDL Cholesterol 69 mg/dL; LDL Cholesterol Calculated 141 mg/dl; Potassium 3.8 mmol/L (3.3-5.1); Sodium 139 mmol/L (135-145); Squamous Epithelial Cell Urine TRACE /LPF; Total Protein 7.5 g/dL (6.5-8.0); Triglycerides 83 mg/dL; WBC Urine 30-49 /HPF (0-4)
[2021-07-08 13:42] LABS: Bacteria Urine TRACE /LPF; RBC Urine 0 /HPF (0)
[2021-07-08 14:04] LABS: TSH reflex Free T4 0.53 uIU/mL (0.32-4.0)
== END 2021-07-08 10:50 | disposition home or self-care (01) ==
LOC: HO.WFDLDS 10:49
PROVIDERS: Visit Provider Family Medicine
DX: Z00.00 Encounter for general adult medical examination without abnormal findings (principal)
CPT/HCPCS: 36415; 80053; 80061; 81001; 84443; 85025

== ENCOUNTER 2021-07-14 14:44 | Outpatient (REF) | payer MEDICARE, SELFPAY ==
--- NOTE | ~2021-07-14 | MM_ITS ---
EXAMINATION: BONE DENSITOMETRY CLINICAL INDICATION: Encounter for screening for osteoporosis. COMPARISON: None (current study represents initial baseline exam). TECHNIQUE: Using a Scoopshot DXA System (software version: 13.1) manufactured by [employer], dual-energy x-ray absorptiometry was performed of the lumbar spine and right hip. The images are of good technical quality. Summary results are attached. FINDINGS: AP SPINE L1-L3 (excluding L4): The data of L1-L4 has been changed to exclude the L4 vertebral body, because degenerative changes at this level may cause overestimation of lumbar spine density. BMD 0.791 g/cm2, Z-score -1.5, T-score -3.2, osteoporosis. RIGHT FEMUR, NECK: BMD 0.778 g/cm2, Z-score 0.0, T-score -1.9, osteopenia. RIGHT FEMUR, TOTAL: BMD 0.778 g/cm2, Z-score -0.1, T-score -1.8, osteopenia. IDENTIFIED RISK FACTORS: Osteoporosis, family history (parental hip fracture) history of fracture (adult), menopause. HISTORY OF FRACTURE: Wrist. MEDICATIONS: None listed. MM/XR DEXA axial skeleton IMPRESSION: 1. DIAGNOSIS: Osteoporosis based on the lowest T-score value of -3.2 in the lumbar spine applying World Health Organization criteria. 2. 10-YEAR FRACTURE RISK PREDICTION, FRAX: According to the guidelines, FRAX calculation should only be performed on patients in the osteopenia bone density category. Therefore, FRAX was not performed on this patient. 3. Treatment Recommendations: NOF guidelines recommend consideration for treatment in postmenopausal women and men age 50 and older presenting with the following: -A hip or vertebral (clinical or morphometric) fracture. -T-score less than or equal to -2.5 at the femoral neck or spine after appropriate evaluation to exclude secondary causes. -Low bone mass at the hip or spine and a 10-year fracture probability by FRAX of greater than or equal to 3% for hip fracture or greater than or equal to 20% for major osteoporotic fracture based on the [place] adapted WHO algorithm. 4. Other Recommendations: All treatment decisions require clinical judgment and consideration of individual patient factors, including patient preferences, comorbidities, previous drug use, risk factors not captured in the FRAX model (e.g. frailty, falls, vitamin D deficiency, increased bone turnover, interval significant decline in bone density) and possible under or overestimation of fracture risk by FRAX. Additional medical evaluation for secondary cause of low bone mineral density may be appropriate. FUTURE SCAN RECOMMENDATION: People with diagnosed cases of osteoporosis or at high risk for fracture should have regular bone mineral density tests. For patients eligible for Medicare, routine testing is allowed once every 2 years. The testing frequency can be increased to one year for patients who have rapidly progressing disease, those who are receiving or discontinuing medical therapy to restore bone mass, or have additional risk factors.
== END 2021-07-14 14:45 | disposition home or self-care (01) ==
LOC: HO.MAMMO 14:44
PROVIDERS: Visit Provider Family Medicine
DX: Z13.820 Encounter for screening for osteoporosis (principal); Z78.0 Asymptomatic menopausal state; M81.0 Age-related osteoporosis without current pathological fracture
CPT/HCPCS: 77080

== ENCOUNTER 2022-06-23 09:43 | Outpatient (REF) | payer MEDICARE, SELFPAY ==
[2022-06-23 11:56] LABS: Appearance Urine Clear; Color Urine Yellow; Glucose Urine UA Negative (Negative); Leukocyte Esterase Urine Small (1+) (Negative); Nitrite Urine Negative (Negative); PH 6.5 (5.0-9.0); Specific Gravity - Urine <= 1.005 (1.005-1.025); UMIC TRIGGER UA YES; Urine Blood Negative (Negative); Urine Ketones Negative (Negative); Urine Protein Negative (Neg-Trace)
[2022-06-23 11:59] LABS: Bacteria Urine 4+ (None Seen); Hyaline Casts Urine 0-2 /LPF (0-2); RBC Urine 0-2 /HPF (0-2); Squamous Epithelial Cell Urine 0-2 /HPF (0-2)
== END 2022-06-23 09:44 | disposition home or self-care (01) ==
LOC: HO.WFDLNP 09:43
PROVIDERS: Visit Provider Family Medicine
DX: R82.71 Bacteriuria (principal)
CPT/HCPCS: 81001; 87086; 87088; 87186

== ENCOUNTER 2022-07-22 09:32 | Outpatient (REF) | payer MEDICARE, SELFPAY ==
[2022-07-22 10:37] LABS: MANUAL DIFF FLAG NO
[2022-07-22 10:42] LABS: Eosinophils Absolute Auto 0.2 X10*3/uL (0.0-0.4); Eosinophils Percent Auto 4.2 % (0-4); Hematocrit 47.4 % (37.0-47.0); Imm Gran Abs Auto 0.01 X10*3/uL (0.00-0.03); Imm Gran Pct Auto 0.2 % (0.0-0.4); Lymphocytes Absolute Auto 1.5 X10*3/uL (1.2-4.9); Lymphocytes Percent Auto 37.4 % (20-40); Mean Corpuscular HGB Conc 33.8 g/dl (31.0-35.0); Mean Corpuscular Hemoglobin 32.8 pg (27.0-33.0); Mean Corpuscular Volume 97.1 fL (80.0-98.0); Mean Platelet Volume 9.1 fL (9.4-12.3); Monocytes Absolute Auto 0.4 X10*3/uL (0.1-1.2); Monocytes Percent Auto 10.1 % (2-11); Neutrophils Absolute Auto 1.9 x10*3/uL (2.0-8.3); Neutrophils Percent Auto 47.1 % (45-73); Platelet Count 227 X10*3/uL (160-400); Red Blood Count 4.88 X10*6/uL (4.20-5.50); Red Cell Distribution Width 12.2 % (11.0-16.0)
[2022-07-22 11:14] LABS: Appearance Urine Clear; Color Urine Yellow; Glucose Urine UA Negative (Negative); Leukocyte Esterase Urine Small (1+) (Negative); Nitrite Urine Negative (Negative); UMIC TRIGGER UA YES; Urine Blood Negative (Negative); Urine Ketones Negative (Negative); Urine Protein Negative (Neg-Trace)
[2022-07-22 11:25] LABS: Alanine Aminotransferase 10 U/L (0-31); Albumin Level 4.2 g/dL (3.5-5.0); Alkaline Phosphatase 71 U/L (39-117); Anion Gap 15 (12-20); Aspartate Amino Transferase 18 U/L (5-31); Bilirubin Total 0.9 mg/dL (0.0-1.0); Blood Urea Nitrogen 11 mg/dL (9-16); Calcium 9.6 mg/dL (8.4-10.2); Carbon Dioxide 25 mmol/L (22-29); Chloride 105 mmol/L (96-108); Cholesterol 234 mg/dL; Estimated Glomerular Filt Rate > 60; Glucose Fasting 87 mg/dL (60-99); HDL Cholesterol 66 mg/dL; LDL Cholesterol Calculated 148 mg/dl; Potassium 4.1 mmol/L (3.3-5.1); Sodium 141 mmol/L (135-145); Total Protein 7.5 g/dL (6.5-8.0); Triglycerides 101 mg/dL
[2022-07-22 11:30] LABS: Creatinine Urine 169.22 mg/dL; Microalbum/Creatinine Ratio Ur 8.2 ug/mg cr
[2022-07-22 11:34] LABS: Bacteria Urine None Seen (None Seen); Hyaline Casts Urine 0-2 /LPF (0-2); RBC Urine 0-2 /HPF (0-2); Squamous Epithelial Cell Urine 0-2 /HPF (0-2); WBC Urine 0-5 /HPF (0-5)
[2022-07-22 11:43] LABS: TSH reflex Free T4 0.56 uIU/mL (0.32-4.0)
== END 2022-07-22 09:33 | disposition home or self-care (01) ==
LOC: HO.HMGCLDS 09:32
PROVIDERS: PCP Family Medicine; Visit Provider Family Medicine
DX: Z00.00 Encounter for general adult medical examination without abnormal findings (principal); E55.9 Vitamin D deficiency, unspecified; M81.0 Age-related osteoporosis without current pathological fracture; I10 Essential (primary) hypertension; R82.71 Bacteriuria
CPT/HCPCS: 36415; 80053; 80061; 81001; 82043; 82306; 84443; 85025

== ENCOUNTER 2022-11-15 11:30 | Outpatient (AMB) | payer MEDICARE, SELFPAY ==
[2022-11-15 11:40] VITALS: BP 132/80; PULSE 73; RESP 12; TEMP 36.4; O2SAT 98; BMI 22.2
--- NOTE | 2022-11-15 11:40 | MHC.PC.OV ---
Vital Signs 11/15/22 11:40 Height 5 ft 7 in Weight 142 lb BMI 22.2 BP 132/80 Blood Pressure Location Rt brachial Position Sitting Respiration 12 Pulse 73 Pulse Source Pulse Oximeter Temp 97.6 F Temp Source Temporal Artery Scan Pulse Oximetry (%) 98 Oxygen Delivery Method Room Air Intake Visit Reasons: Lower Abdomen Discomfort Intake Note: Patient states that lower abdomen pain has subsided as of right now. Patient states that she will get bkood work done today after visit. [employer] Required: Yes [employer] Name: Colt(Son) Allergies No Known Allergies Allergy (Verified 11/15/22 12:03) Medication List - Last Reconciled 11/15/22 by Niraj Dinh CNP acetaminophen 650 mg (2 x 325 mg) PO Q6H PRN 30 days alendronate 70 mg PO QWEEK 28 days aspirin 325 mg PO BID 42 days celecoxib 200 mg PO BID 30 days cholecalciferol (vitamin D3) 50 mcg PO DAILY 90 days docusate sodium 100 mg PO BID 30 days escitalopram oxalate 10 mg PO DAILY PRN losartan 50 mg PO DAILY omeprazole 20 mg PO DAILY PRN 90 days Tobacco use date assessed: 11/15/22 Fall risk assessment: No Falls in past year Last assessed Fall Risk: 11/15/22 Dental Screening Dental Screen Date: 11/15/22 Did you have a dental visit in the last 12 months?: No Did you have a dental problem in the last 6 months where you did not have access to dental care?: No Was dental information given to patient?: Patient has dentist HPI HPI Comments History of Present Illness Details 77-year-old Telugu speaking female, accompanied by her son, presents with complaints of lower abdominal discomfort that occurred for 2 weeks and completely resolved a week ago. She reports associated bloating and her symptoms would improve with belching. No n/v/d or urinary symptoms. PFSH Medical History Arthritis COVID-19 vaccine administered Hx of diverticulitis of colon Depression GERD (gastroesophageal reflux disease) Hyperlipidemia HTN (hypertension) Surgical History History of esophagogastroduodenoscopy (EGD) H/O colonoscopy History of incisional hernia repair History of partial colectomy History of surgery on left wrist Family History Father No problems noted. Mother No problems noted. Brother No problems noted. Sister No problems noted. Sister No problems noted. Son No problems noted. Social History Housing: House Are you a primary pharmacy care coordinator to a significant other at home: No Do you presently have visiting nurse or other home services: No Alcohol intake: never Patient Tobacco Use Status: Never used Tobacco e-Cigarette/Vaping Use: Never Used Advance Directives Date on File: 08/10/20 service: No Current occupational status: employed Current occupation: Laundry Current occupational exposures/hazards: No Cognitive needs: No Hearing needs: No Vision needs: No Questionnaire Thrive Questionnaire Date Thrive assessed: 01/03/22 VIVIANA-7 AMB Questionnaire VIVIANA-7 Date VIVIANA - 7 assessed: 01/03/22 Source: Developed by Drs. Colt Banks, Padmini Anderson, Liborio Sofia and colleagues, with an educational andrea from [email or web address]. Review of Systems Const Details: Const Denies chills, Denies fatigue, Denies fever(s), Denies headache(s) and Denies weakness ENT Denies dizziness and Denies headache(s) Card Denies chest pain, Denies lightheadedness, Denies dyspnea and Denies other (Palpitations) Resp Denies cough, Denies dyspnea, Denies wheezing and Denies other ( shortness of breath) GI Denies abdominal pain, Denies melena, Denies hematochezia, Denies change in bowel habits, Denies dyspepsia and Denies nausea Denies hematuria and Denies dysuria Musc Denies abnormal gait, Denies myalgias, Denies arthralgias, Denies numbness and Denies tingling Skin/Breast Denies rash, Denies unusual bruising and Denies wounds Neuro Denies abnormal gait, Denies dizziness, Denies headache(s), Denies memory loss, Denies numbness, Denies Sensory deficit (Neuro), Denies tingling and Denies weakness Psych Denies anxiety, Denies depression, Denies memory loss Endo Denies cold intolerance, Denies fatigue, Denies heat intolerance, Denies polydipsia and Denies polyuria Aller/Immun Denies wheezing Physical exam (Primary Care) Vital Signs: Last Vital Signs Temp 97.6 F 11/15/22 11:40 Pulse 73 11/15/22 11:40 Resp 12 11/15/22 11:40 BP 132/80 11/15/22 11:40 Pulse Ox 98 11/15/22 11:40 Oxygen Delivery Method Room Air 11/15/22 11:40 BMI result Body Mass Index 22.2 Tobacco/Smoking Status: Tobacco use Status Tobacco use date assessed 11/15/22 11/15/22 11:50 Patient Tobacco Use Status Never used Tobacco 11/15/22 11:50 e-Cigarette/Vaping Use Never Used 11/15/22 11:50 Thrive Assessment: Date of Thrive Assessment Date Thrive assessed 01/03/22 11/15/22 11:50 Const Other: General: no acute distress and well developed Nutritional Appearance: well nourished Orientation/consciousness: patient oriented x3 HENMT Head: Yes normocephalic and Yes atraumatic Eyes General: appearance normal, both eyes and all related structures Pupils: Equal, round and reactive pupils present EOM: EOMs intact bilaterally Resp Effort & Inspection: normal respiratory effort Auscultation: clear to auscultation bilaterally Cardio Rate: regular rate Rhythm: regular rhythm Heart sounds: S1 normal heart sound present, S2 normal heart sound present, no gallops, no murmurs and no rubs GI Palpation (GI): No Abdominal aortic bruit present, Soft to palpation, nontender, No hepatosplenomegaly present and No Rebound tenderness present Auscultation: normal bowel sounds General: Yes no CVA tenderness Back/Spine/Pelvis Back: no CVA tenderness Cervical Spine: cervical ROM normal and No Cervical spine tenderness Thoracic/Lumbar Spine: thoraco-lumbar ROM normal, No pain with thoraco-lumbar ROM, No thoracic spinal tenderness and No lumbar spinal tenderness Extrem General: Yes normal to inspection, No edema and No calf tenderness Skin General: warm and dry. Normal skin color. Normal skin turgor Lesions: no lesions Rashes: no rashes Trauma: no lacerations or abrasions Wounds: no wounds Nails: normal Neuro General: patient oriented x3, gait normal and no focal neuro deficit Cranial nerves: Yes Equal, round and reactive pupils present Cognition (Neuro): normal cognition Gait exam (Neuro): Normal gait present Sensory Exam: No Sensory deficit (Neuro) Psych Appearance: grossly normal Affect: normal affect Attitude: cooperative Thought process: Normal thought process present Assessment and Plan Assessment & Plan (1) Abdominal pain: Code(s): R10.9 - Unspecified abdominal pain Plan: Reports 2 weeks of suprapubic pain that spontaneously resolved Urine sample sent to the lab for urinalysis and culture to rule out UTI Adequate hydration encouraged Follow-up with worsening or new symptoms Verbalized understanding and agreed with the treatment plan. Interpretation by the patient's son per patient preference. Orders: Orders UA CC w/rflx Micro + Cult Today R10.9 - Unspecified abdominal pain Coding Level of Care Code Est Pt Level 2 (60351) Diagnoses Abdominal pain R10.9
== END 2022-11-15 12:23 | disposition home or self-care (01) ==
PROVIDERS: PCP Family Medicine; Visit Provider Nurse Practitioner Family
DX: R10.9 Unspecified abdominal pain (principal)
CPT/HCPCS: 99212

== ENCOUNTER 2022-11-15 12:26 | Outpatient (REF) | payer MEDICARE, SELFPAY ==
[2022-11-15 14:52] LABS: Appearance Urine Turbid; Color Urine Yellow; Glucose Urine UA Negative (Negative); Leukocyte Esterase Urine Small (1+) (Negative); Nitrite Urine Negative (Negative); PH 5.5 (5.0-9.0); UMIC TRIGGER UACC YES; Urine Blood Negative (Negative); Urine Ketones Negative (Negative); Urine Protein Negative (Neg-Trace)
[2022-11-15 15:05] LABS: Bacteria Urine None Seen (None Seen); Hyaline Casts Urine 0-2 /LPF (0-2); RBC Urine 0-2 /HPF (0-2); Squamous Epithelial Cell Urine 0-2 /HPF (0-2); UACC Culture Trigger YES; WBC Urine 0-5 /HPF (0-5)
[2022-11-15 15:07] LABS: Anion Gap 10 (12-20); Blood Urea Nitrogen 11 mg/dL (9-16); Calcium 9.6 mg/dL (8.4-10.2); Carbon Dioxide 27 mmol/L (22-29); Chloride 107 mmol/L (96-108); Cholesterol 224 mg/dL (<200); Estimated Glomerular Filt Rate > 60; Glucose Fasting 85 mg/dL (60-99); HDL Cholesterol 57 mg/dL (>40); LDL Cholesterol Calculated 140 mg/dL (<100); Potassium 3.8 mmol/L (3.3-5.1); Sodium 140 mmol/L (135-145); Triglycerides 136 mg/dL (<150)
== END 2022-11-15 12:27 | disposition home or self-care (01) ==
LOC: HO.WFDLDS 12:26
PROVIDERS: Nurse Practitioner Family; Visit Provider Family Medicine
DX: Z00.00 Encounter for general adult medical examination without abnormal findings (principal); E78.5 Hyperlipidemia, unspecified; R10.9 Unspecified abdominal pain
CPT/HCPCS: 36415; 80048; 80061; 81001; 87086

== ENCOUNTER 2023-09-24 11:07 | Outpatient (AMB) | payer MEDICARE, SELFPAY ==
--- NOTE | 2023-09-24 11:23 | MHC.PC.OV ---
Vital Signs 09/24/23 11:26 Height 5 ft 7 in Weight 147 lb 6 oz BMI 23.1 BP 132/90 H Blood Pressure Location Rt brachial Position Sitting Pulse 80 Pulse Source Pulse Oximeter Pulse Oximetry (%) 95 Oxygen Delivery Method Room Air Intake Visit Reasons: pe Intake Note: Felipe is a 78 year old female who presents to the office today for a PE. Pt states she saw a GI doctor at [address] [place] [address] in [place] and would like a new referral for a different doctor due to the office cancelling multiple times. Brusher [employer] Required: Yes Br[employer]her [employer] Name: Colt Nicholson(Son) Allergies No Known Allergies Allergy (Verified 09/24/23 11:25) Medication List - Last Reconciled 09/24/23 by Roman Peterson MD acetaminophen 650 mg (2 x 325 mg) PO Q6H PRN 30 days omeprazole 20 mg PO DAILY PRN 90 days Tobacco use date assessed: 09/24/23 Fall risk assessment: No Falls in past year Last assessed Fall Risk: 09/24/23 Dental Screening Dental Screen Date: 09/24/23 Did you have a dental visit in the last 12 months?: No Did you have a dental problem in the last 6 months where you did not have access to dental care?: No Was dental information given to patient?: Patient has dentist HPI pe HPI Details 78 y/o female presents for a CPE with f/u labs and health maintenance. Requesting referral to GI for abdominal pain, hx of hiatal hernia. Blood pressure today 132/90, 80p. She reports dizziness and questions whether or not her blood pressures are low. They report episode of dizziness once every 3 months. PFSH Medical History Arthritis COVID-19 vaccine administered Hx of diverticulitis of colon Depression GERD (gastroesophageal reflux disease) Hyperlipidemia HTN (hypertension) Surgical History History of esophagogastroduodenoscopy (EGD) H/O colonoscopy History of incisional hernia repair History of partial colectomy History of surgery on left wrist Family History Father No problems noted. Mother No problems noted. Brother No problems noted. Sister No problems noted. Sister No problems noted. Son No problems noted. Social History (Reviewed 09/24/23 @ 11:31 by Halima Huffman [facility]) Housing: House Are you a primary field care advocate to a significant other at home: No Do you presently have visiting nurse or other home services: No Alcohol intake: never Patient Tobacco Use Status: Never used Tobacco e-Cigarette/Vaping Use: Never Used Advance Directives Date on File: 08/10/20 service: No Current occupational status: employed Current occupation: Laundry Current occupational exposures/hazards: No Cognitive needs: No Hearing needs: No Vision needs: No Questionnaire PHQ-9 Over the last 2 weeks, how often have you been bothered by any of the following problems? 1. Little interest or pleasure in doing things: not at all 2. Feeling down, depressed, or hopeless: not at all 3. Trouble falling or staying asleep, or sleeping too much: not at all 4. Feeling tired or having little energy: not at all 5. Poor appetite or overeating: not at all 6. Feeling bad about yourself - or that you are a failure or have let yourself or your family down: not at all 7. Trouble concentrating on things, such as reading the newspaper or watching television: not at all 8. Moving or speaking so slowly that other people could have noticed. Or the opposite - being so fidgety or restless that you have been moving around a lot more than usual: not at all 9. Thoughts that you would be better off or of hurting yourself in some way: not at all Total score: 0 Depression Screening Interpretation: Negative Depression Screening Done: Yes 69138 - PHQ-9 Billing: Yes Source: Developed by Drs. Colt Banks, Padmini Anderson, Liborio Sofia and colleagues, with an educational andrea from [employer]. Thrive Questionnaire Date Thrive assessed: 09/24/23 I am a: Patient What is your living situation today?: I have a steady place to live Within the past 12 months, did the food you bought not last and you didn't have the money to get more?: Never true Within the past 12 months, did you worry whether your food would run out before you got money to buy more?: Never true Do you have trouble paying for medicines?: No Do you have trouble getting transportation to medical appointments?: No Do you have trouble paying your heating and electricity bill?: No Do you have trouble taking care of your child, family member or friend?: No Do you have trouble with day-to-day activities such as bathing, preparing meals, shopping, managing finances, etc.?: No Are you currently unemployed and looking for a job?: No Are you interested in more education?: No THRIVE Score: 0 AUDIT C Alcohol Use Questionnaire (AUDIT-C) 1. How often do you have a drink containing alcohol?: Monthly or less 2. How many drinks containing alcohol do you have on a typical day when you are drinking?: 1 or 2 3. How often do you have six or more drinks on one occasion?: Never Total Score: 1 VIVIANA-7 AMB Questionnaire VIVIANA-7 Date VIVIANA - 7 assessed: 09/24/23 Feeling nervous, anxious, or on edge: 0 = Not at all Not being able to stop or control worryin = Not at all Worrying too much about different things: 0 = Not at all Trouble relaxin = Not at all Being so restless that it is hard to sit still: 0 = Not at all Becoming easily annoyed or irritable: 0 = Not at all Feeling afraid as if something awful might happen: 0 = Not at all Total VIVIANA-7 score (0-4 normal; 5-9 mild; 10-14 moderate; 15-21 severe): 0 Source: Developed by Drs. Colt Banks, Padmini Anderson, Liborio Sofia and colleagues, with an educational andrea from [employer]. VIVIANA-7 Assessment Billing VIVIANA-7 Assessment Tool: VIVIANA-7 Assessment [id number] Review of Systems Const Denies chills, Denies fatigue, Denies fever(s), Denies headache(s) and Denies weakness Eyes Denies change in vision ENT Denies dizziness and Denies headache(s) Card Denies chest pain, Denies lightheadedness, Denies dyspnea and Denies other (Palpitations) Resp Denies cough, Denies dyspnea, Denies wheezing and Denies other ( shortness of breath) GI Denies abdominal pain, Denies melena, Denies hematochezia, Denies change in bowel habits, Denies dyspepsia and Denies nausea Denies hematuria and Denies dysuria Musc Denies numbness and Denies tingling Skin/Breast Denies rash, Denies unusual bruising and Denies wounds Neuro Denies dizziness, Denies headache(s), Denies numbness, Denies Sensory deficit (Neuro), Denies tingling, Denies paresthesias and Denies weakness Psych Denies anxiety and Denies depression Endo Denies fatigue [place]occo/Lymph Denies easy bleeding and Denies easy bruising Aller/Immun Denies wheezing Physical exam (Primary Care) Vital Signs: Last Vital Signs Pulse 80 09/24/23 11:26 BP 132/90 H 09/24/23 11:26 Pulse Ox 95 09/24/23 11:26 Oxygen Delivery Method Room Air 09/24/23 11:26 BMI result Body Mass Index 23.1 Tobacco/Smoking Status: Tobacco use Status Tobacco use date assessed 09/24/23 09/24/23 11:25 Patient Tobacco Use Status Never used Tobacco 09/24/23 11:24 e-Cigarette/Vaping Use Never Used 09/24/23 11:24 PHQ-9: PHQ-9 Score PHQ-9: Total score 0 09/24/23 11:33 Depression Screening Interpretation: Negative Thrive Assessment: Date of Thrive Assessment Date Thrive assessed 09/24/23 09/24/23 11:33 Const General: no acute distress and well developed Nutritional Appearance: well nourished Orientation/consciousness: patient oriented x3 HENMT Head: Yes normocephalic and Yes atraumatic Ears: hearing grossly normal bilaterally and TM's normal bilaterally General nose exam: Normal external nose present and Normal nares present Mouth: Normal oral and palatal mucosa present and moist mucous membranes Teeth and gingiva: dentition normal Throat: Yes posterior oropharynx normal Eyes General: appearance normal, both eyes and all related structures Pupils: Equal, round and reactive pupils present EOM: EOMs intact bilaterally Neck Neck: Yes normal visual inspection, Yes no lymphadenopathy and Yes trachea midline Thyroid: Thyroid normal Carotids: no bruits Lymphatic: no lymphadenopathy noted Chest Chest palpation & inspection: normal inspection of the chest Resp Effort & Inspection: normal respiratory effort Auscultation: clear to auscultation bilaterally Cardio Rate: regular rate Rhythm: regular rhythm Heart sounds: S1 normal heart sound present, S2 normal heart sound present, no gallops, no murmurs and no rubs Bruits: no abdominal aortic bruits and no carotid bruits GI Palpation (GI): No Abdominal aortic bruit present, Soft to palpation, nontender, No hepatosplenomegaly present and No Rebound tenderness present Auscultation: normal bowel sounds General: Yes no CVA tenderness Back/Spine/Pelvis Back: no CVA tenderness Cervical Spine: cervical ROM normal and No Cervical spine tenderness Thoracic/Lumbar Spine: thoraco-lumbar ROM normal, No pain with thoraco-lumbar ROM, No thoracic spinal tenderness and No lumbar spinal tenderness Skin Lesions: no lesions Rashes: no rashes Trauma: no lacerations or abrasions Wounds: no wounds Nails: normal Neuro General: patient oriented x3 and gait normal Cranial nerves: Yes Equal, round and reactive pupils present Cognition (Neuro): normal cognition Gait exam (Neuro): Normal gait present Motor exam (neuro): 5/5 motor strength present throughout Sensory Exam: No Sensory deficit (Neuro) Deep tendon reflexes (DTR's): Right patellar reflex intensity grade: 2+ and Left patellar reflex intensity grade: 2+ Extrem General: Yes normal to inspection and No edema Psych Appearance: grossly normal Affect: normal affect Attitude: cooperative Thought process: Normal thought process present Assessment and Plan Assessment & Plan (1) Essential hypertension: Code(s): I10 - Essential (primary) hypertension Plan: Blood?pressure?is?high.??Goal?is?less?than?140/90 Patient?disagrees?with?goals?and?says?she?gets?dizzy?when?her?blood?pressures?are?lower Discussion?with?her?and?her?son?that?hopefully?we?can?all?agree?to?shoot?for?systolic?blood?pressure?between?130?and?140 and?shoot?for?diastolic?blood?pressure?less?than?90. Patient?takes?her?losartan?when?her?blood?pressures?are? high according?to?her. Continue?losartan (2) Abdominal pain: Code(s): R10.9 - Unspecified abdominal pain Plan: Referred?to?Gastroenterology (3) Dizziness: Code(s): R42 - Dizziness and giddiness Plan: Patient?notes?dizziness?when?her?blood?pressures?are?less?than?130/80. Check?carotid?duplex This?is?occurring?in?frequency?between?once?a?month?and?once?every?6?months.??Unclear?if?this?is?truly?due?to?low?blood?pressures?or?2?to?some?dehydration?or?other?cause. (4) Hiatal hernia: Code(s): K44.9 - Diaphragmatic hernia without obstruction or gangrene Plan: Had?been?referred?to?GI?at?[facility]?but?patient?says?she?is?frustrated?that?they?have?canceled?many?appointment Referred?to?GI?at?[facility] (5) Screening for osteoporosis: Code(s): Z13.820 - Encounter for screening for osteoporosis Plan: Known?osteoporosis She?had?been?on?alendronate?but?stopped?taking?this.??She?agrees?to?resume?this (6) Low vitamin D level: Code(s): R79.89 - Other specified abnormal findings of blood chemistry Plan: Low?vitamin-D?level Recheck?vitamin-D Continue?vitamin-D?supplementation (7) Breast cancer screening by mammogram: Code(s): Z12.31 - Encounter for screening mammogram for malignant neoplasm of breast Plan: Overdue?for?mammogram Ordered (8) Screening for colon cancer: Code(s): Z12.11 - Encounter for screening for malignant neoplasm of colon Plan: Patient?says?she?was?told?she?was?done?with?colonoscopies?at?age?75 She?is?already?referred?to?gastroenterology?for?hiatal?hernia?and?abdominal?discomfort.??Can?review?colon?cancer?screening?with?GI (9) Adult general medical exam: Code(s): Z00.00 - Encounter for general adult medical examination without abnormal findings Plan: 78-year-old?female?presents?for?extended?exam Orders: Orders Comprehensive [place]. Panel Fast Today Z00.00 - Encounter for general adult medical examination without abnormal findings TSH reflex Free T4 Today Z00.00 - Encounter for general adult medical examination without abnormal findings Lipase Today R10.9 - Unspecified abdominal pain Complete Blood Count Auto Diff Today Z00.00 - Encounter for general adult medical examination without abnormal findings Lipid Panel Today Z00.00 - Encounter for general adult medical examination without abnormal findings Microalbumin, Random (w Creat) Today I10 - Essential (primary) hypertension UA and rflx microscopic Today Z00.00 - Encounter for general adult medical examination without abnormal findings Vitamin D 25-OH Total Today E55.9 - Vitamin D deficiency, unspecified, R79.89 - Other specified abnormal findings of blood chemistry US carotid duplex BI Today R42 - Dizziness and giddiness Referrals Gastroenterology Referral K44.9 - Diaphragmatic hernia without obstruction or gangrene, R10.9 - Unspecified abdominal pain, Z12.11 - Encounter for screening for malignant neoplasm of colon Medications: Changed From losartan 50 mg PO DAILY 90 tabs 0RF To losartan 50 mg PO DAILY 90 days 90 tabs 3RF Refilled cholecalciferol (vitamin D3) 50 mcg PO DAILY 90 days 90 caps 2RF alendronate 70 mg PO QWEEK 28 days 4 tabs 4RF Coding Level of Care Code Est Pt Level 4 (58544) Diagnoses Essential hypertension I10 Abdominal pain R10.9 Dizziness R42 Hiatal hernia K44.9 Screening for osteoporosis Z13.820 Low vitamin D level R79.89 Breast cancer screening by mammogram Z12.31 Screening for colon cancer Z12.11 Adult general medical exam Z00.00 Additional Codes VIVIANA-7 Assessment Billing - VIVIANA-7 Assessment Tool: VIVIANA-7 Assessment [id number] ([id number])
[2023-09-24 11:26] VITALS: BP 132/90; PULSE 80; O2SAT 95; BMI 23.1
== END 2023-09-24 12:32 | disposition home or self-care (01) ==
PROVIDERS: PCP Family Medicine; Visit Provider Family Medicine
DX: I10 Essential (primary) hypertension (principal); R10.9 Unspecified abdominal pain; R42 Dizziness and giddiness; K44.9 Diaphragmatic hernia without obstruction or gangrene; Z13.820 Encounter for screening for osteoporosis; R79.89 Other specified abnormal findings of blood chemistry; Z12.31 Encounter for screening mammogram for malignant neoplasm of breast; Z12.11 Encounter for screening for malignant neoplasm of colon; Z00.00 Encounter for general adult medical examination without abnormal findings
CPT/HCPCS: 99214

== ENCOUNTER 2023-12-21 14:42 | Outpatient (AMB) | payer MEDICARE, SELFPAY ==
--- NOTE | 2023-12-21 14:47 | MHC.OFFVIS ---
Vital Signs 12/21/23 14:48 Height 5 ft 7 in Weight 146 lb 13.246 oz BMI 23.0 BP 158/94 H Blood Pressure Location Lt brachial Position Sitting Pulse 74 Pulse Source Pulse Oximeter Pulse Oximetry (%) 99 Oxygen Delivery Method Room Air Intake Visit Reasons: abdominal pain, colo screening Intake Note: Relevant Flags or Indicators ? Requires Dry Room Operator? Y -- Welsh, pt's son is with her. Felipe presents in office today for a scheduled initial assessment. CC; labs ordered ? per PCP. Diagnostics/images ordered ? none. Relevant GI Sx as reported per pt? Abdominal Pain o?? Lower Right pain. Pt believes this is related to previous hernia repair. This was performed at [facility] ~ 2 years ago. This was a secondary repair to the initial surgery. ? Pertinent FMHx? None Dry Room Operator Required: Yes Dry Room Operator Services: Dry Room Operator Present Information Interpreted: non-clinical & clinical Allergies No Known Allergies Allergy (Verified 12/21/23 14:47) HPI HPI abdominal pain, colo screening: Details: Patient had colonoscopy in 2017, a few weeks after colonoscopy patient end up with sepsis. Patient had mild bowel perforation that end up in leaking into her abdomen. Several surgeries done. Patient had colon resection and end up with colostomy. In 2017 patient was referred to surgeon for colostomy reversal. Patient was found to have ventral hernias and adhesions and that was repaired at the time of colon resection and revision of her colostomy. In September of 2021 patient had left inguinal hernia repair. Patient denies any issues with anesthesia in the past. Reports to have abdominal pain and discomfort. Is due for colonoscopy, however she reports frequent abdominal bloating and abdominal pain. Patient denies nausea, vomiting or fever. Moves his bowels daily. Patient avoids eating out, eats mostly home cooked meals. [facility] Medical History (Updated 12/31/23 @ 19:28 by DENISHA Saunders) Arthritis COVID-19 vaccine administered Hx of diverticulitis of colon Depression GERD (gastroesophageal reflux disease) Hyperlipidemia HTN (hypertension) Surgical History (Updated 12/31/23 @ 19:27 by DENISHA Saunders) History of ventral hernia repair History of colon resection History of esophagogastroduodenoscopy (EGD) H/O colonoscopy History of incisional hernia repair History of partial colectomy History of surgery on left wrist Family History Father No problems noted. Mother No problems noted. Brother No problems noted. Sister No problems noted. Sister No problems noted. Son No problems noted. Social History Housing: House Are you a primary care associate to a significant other at home: No Do you presently have visiting nurse or other home services: No Alcohol intake: never Patient Tobacco Use Status: Never used Tobacco e-Cigarette/Vaping Use: Never Used Advance Directives Date on File: 08/10/20 service: No Current occupational status: employed Current occupation: Laundry Current occupational exposures/hazards: No Cognitive needs: No Hearing needs: No Vision needs: No Physical Exam Vital Signs: Last Vital Signs Pulse 74 12/21/23 14:48 BP 158/94 H 12/21/23 14:48 Pulse Ox 99 12/21/23 14:48 Oxygen Delivery Method Room Air 12/21/23 14:48 BMI result Body Mass Index 23.0 Assessment & Plan Assessment & Plan (1) History of colon resection: Code(s): Z90.49 - Acquired absence of other specified parts of digestive tract Category: Surgical (2) Screening for colon cancer: Code(s): Z12.11 - Encounter for screening for malignant neoplasm of colon Category: Medical (3) Abdominal pain: Code(s): R10.9 - Unspecified abdominal pain Category: Medical Qualifiers: Abdominal location: generalized Qualified Code(s): R10.84 - Generalized abdominal pain (4) History of ventral hernia repair: Code(s): Z98.890 - Other specified postprocedural states; Z87.19 - Personal history of other diseases of the digestive system Category: Surgical (5) History of inguinal hernia repair: Code(s): Z98.890 - Other specified postprocedural states; Z87.19 - Personal history of other diseases of the digestive system (6) History of colonoscopy with polypectomy: Code(s): Z98.890 - Other specified postprocedural states; Z86.0100 - Personal history of colon polyps, unspecified Plan Patient reports abdominal pain and postprandial abdominal bloating. Moves her bowels without any issues. Increase fluid intake and activity to promote better bowel motility. Discussed with patient low FODMAP diet. Patient will be sent for CT scan to rule out recurrence of hernia versus ileus. I will see patient in 3 months, sooner on as needed basis. Patient will call the office if she will have worsening symptoms. Patient reports that she has been dealing with this in the past few months. Denies any nausea or vomiting. Abdomen nontender, soft good bowel sounds. Orders: Orders Blood Urea Nitrogen 12/21/23 R10.11 - Right upper quadrant pain CT abdomen pelvis w IV con 12/21/23 R10.9 - Unspecified abdominal pain, R10.32 - Left lower quadrant pain, Z90.49 - Acquired absence of other specified parts of digestive tract Creatinine 12/21/23 R10.11 - Right upper quadrant pain Coding Level of Care Code New Pt Level 4 (76086) Diagnoses History of colon resection Z90.49 Screening for colon cancer Z12.11 Generalized abdominal pain R10.84 Abdominal location: generalized History of ventral hernia repair Z98.890; Z87.19 History of inguinal hernia repair Z98.890; Z87.19 History of colonoscopy with polypectomy Z98.890; Z86.0100 Time Spent (min) 50 Comment 30 minutes spent with patient and additional 20 minutes spent reviewing her records
[2023-12-21 14:48] VITALS: BP 158/94; PULSE 74; O2SAT 99; BMI 23.0
== END 2023-12-21 15:46 | disposition home or self-care (01) ==
PROVIDERS: PCP Family Medicine; Visit Provider Nurse Practitioner Family
DX: Z90.49 Acquired absence of other specified parts of digestive tract (principal); Z12.11 Encounter for screening for malignant neoplasm of colon; R10.84 Generalized abdominal pain; Z98.890 Other specified postprocedural states; Z87.19 Personal history of other diseases of the digestive system; Z86.0100 Personal history of colon polyps, unspecified
CPT/HCPCS: 99204

== ENCOUNTER → 2023-12-21 14:42 | Outpatient (BNVA) | payer MEDICARE, SELFPAY | PROVIDERS: PCP Family Medicine; Visit Provider Nurse Practitioner Family | DX: R10.84 Generalized abdominal pain (principal); Z86.0100 Personal history of colon polyps, unspecified; Z87.19 Personal history of other diseases of the digestive system; Z90.49 Acquired absence of other specified parts of digestive tract; Z98.890 Other specified postprocedural states; Z12.11 Encounter for screening for malignant neoplasm of colon | CPT/HCPCS: 99202 ==

== ENCOUNTER 2024-03-21 15:10 | Outpatient (AMB) | payer MEDICARE, SELFPAY ==
[2024-03-21 15:11] VITALS: BP 148/86; PULSE 76; O2SAT 98; BMI 23.5
--- NOTE | 2024-03-21 15:11 | A.OFFVIS_ITS ---
Vital Signs 03/21/24 15:11 Height 5 ft 7 in Weight 149 lb 14.629 oz BMI 23.5 BP 148/86 H Blood Pressure Location Rt brachial Position Sitting Pulse 76 Pulse Source Pulse Oximeter Pulse Oximetry (%) 98 Oxygen Delivery Method Room Air Intake Visit Reasons: 3 month follow up Intake Note: ESTABLISHED PATIENT Reason; [address] Labs and CT outstanding. Changes/concerns? Unable to get CT due to insurance coverage. Employee Communications Coordinator Required: Yes Employee Communications Coordinator Services: Employee Communications Coordinator Offered & Declined Accompanied by: Son Allergies No Known Allergies Allergy (Verified 03/21/24 15:11) HPI HPI 3 month follow up: Details: LAST VISIT History of colon resection Screening for colon cancer Abdominal pain History of ventral hernia repair History of inguinal hernia repair History of colonoscopy with polypectomy Plan Patient reports abdominal pain and postprandial abdominal bloating. Moves her bowels without any issues. Increase fluid intake and activity to promote better bowel motility. Discussed with patient low FODMAP diet. Patient will be sent for CT scan to rule out recurrence of hernia versus ileus. I will see patient in 3 months, sooner on as needed basis. Patient will call the office if she will have worsening symptoms. Patient reports that she has been dealing with this in the past few months. Denies any nausea or vomiting. Abdomen nontender, soft good bowel sounds. Orders Orders Blood Urea Nitrogen 12/21/[address] abdomen pelvis w IV con 12/21/23 R10.9, R10.32, Z90.49 Creatinine 12/21/23 R10.11 TODAY'S VISIT Patient is here today for follow-up. CT scan was not approved by her insurance. Patient has long history of abdominal surgeries with colon resection and revision. Reports that she is having abdominal pain in the left lower and mid to lower abdomen. Patient had multiple ultrasounds, however this will not show us her bowel. Patient reports that she is having abdominal bloating as well. Was told before that she should not have a colonoscopy due to her history. Patient denies any melena, hematochezia, unintentional weight loss or ribbon like stools. Patient is very anxious about her symptoms and wants to figure out what is going on. Unfortunately at this time we are unable to perform colonoscopy due to her history. History of bowel perforation after colonoscopy. Patient has a history of multiple surgeries for abdominal hernia repair. Patient denies dyspepsia, dysphagia or odynophagia. Patient reports that she eats fairly healthy, cooks her own meals and does not eat out [facility] Medical History Arthritis COVID-19 vaccine administered Hx of diverticulitis of colon Depression GERD (gastroesophageal reflux disease) Hyperlipidemia HTN (hypertension) Surgical History History of ventral hernia repair History of colon resection History of esophagogastroduodenoscopy (EGD) H/O colonoscopy History of incisional hernia repair History of partial colectomy History of surgery on left wrist Family History Father No problems noted. Mother No problems noted. Brother No problems noted. Sister No problems noted. Sister No problems noted. Son No problems noted. Social History Housing: House Are you a primary acute care physical therapist to a significant other at home: No Do you presently have visiting nurse or other home services: No Alcohol intake: never Patient Tobacco Use Status: Never used Tobacco e-Cigarette/Vaping Use: Never Used Advance Directives Date on File: 08/10/20 service: No Current occupational status: employed Current occupation: Laundry Current occupational exposures/hazards: No Cognitive needs: No Hearing needs: No Vision needs: No Review of Systems Const Denies weight gain and Denies weight loss ENT Reports no additional complaints, Denies dysphagia and Denies odynophagia Card Reports no additional complaints Resp Reports no additional complaints GI Reports abdominal pain, Denies belching, Denies melena, Reports bloating, Denies change in bowel habits, Denies dysphagia, Denies excessive flatus, Denies dyspepsia, Denies heartburn, Denies diarrhea, Denies loose stools, Denies nausea, Denies odynophagia and Denies vomiting Reports no additional complaints Musc Reports no additional complaints Neuro Reports no additional complaints Psych Reports no additional complaints Endo Reports no additional complaints Physical Exam Vital Signs: Last Vital Signs Pulse 76 03/21/24 15:11 BP 148/86 H 03/21/24 15:11 Pulse Ox 98 03/21/24 15:11 Oxygen Delivery Method Room Air 03/21/24 15:11 BMI result Body Mass Index 23.5 Const General: healthy appearing, no acute distress and well developed Nutritional Appearance: well nourished Orientation/consciousness: patient oriented x3 Resp Effort & Inspection: normal respiratory effort, able to speak in complete sentences, no tracheal deviation and symmetric chest movement Auscultation: clear to auscultation bilaterally Cardio Rate: regular rate GI Other: Multiple old surgical scars Inspection: Yes normal to inspection and No distended Palpation (GI): Soft to palpation, not firm, nontender and No hepatosplenomegaly present Auscultation: normal bowel sounds General: Yes no CVA tenderness Back/Spine/Pelvis Back: no CVA tenderness Skin General skin exam: elasticity normal, turgor normal and dry skin Neuro General: patient oriented x3 Psych Appearance: grossly normal Mental Status: mental status grossly normal Assessment & Plan Assessment & Plan (1) History of colon resection: Code(s): Z90.49 - Acquired absence of other specified parts of digestive tract Category: Surgical (2) Screening for colon cancer: Code(s): Z12.11 - Encounter for screening for malignant neoplasm of colon Category: Medical (3) Abdominal pain: Code(s): R10.9 - Unspecified abdominal pain Category: Medical Qualifiers: Abdominal location: generalized Qualified Code(s): R10.84 - Generalized abdominal pain (4) History of ventral hernia repair: Code(s): Z98.890 - Other specified postprocedural states; Z87.19 - Personal history of other diseases of the digestive system Category: Surgical (5) History of inguinal hernia repair: Code(s): Z98.890 - Other specified postprocedural states; Z87.19 - Personal history of other diseases of the digestive system (6) History of colonoscopy with polypectomy: Code(s): Z98.890 - Other specified postprocedural states; Z86.0100 - Personal history of colon polyps, unspecified Plan Due to previous history of colon perforation during colonoscopy, colon resection, history of TA polyps we will send patient for colonography. At this point patient is a high-risk to undergo procedure. Patient was told in the past GI at [facility] that she should never get a colonoscopy. Patient does report abdominal pain and bloating. Patient will follow-up in 6 months unless abnormal colonography. Patient will call our office if she will have any GI concerning symptoms. Patient is agreeable to this plan and verbalizes understanding of instructions. She was given the opportunity to ask questions and all questions answered. Thank you for allowing me to participate in her care Orders: Orders CT colonography 03/21/24 R10.9 - Unspecified abdominal pain, Z86.0100 - Personal history of colon polyps, unspecified, Z90.49 - Acquired absence of other specified parts of digestive tract, Z98.890 - Other specified postprocedural states Medications: New bisacodyl (Dulcolax (bisacodyl)) take 4 tabs at noon the day before your colonoscopy 20 mg (4 x 5 mg) PO ONCE 4 tabs 0RF 1 day Z12.11 - Encounter for screening for malignant neoplasm of colon polyethylene glycol 3350 (Miralax) As directed by gastroenterology department at [facility] 238 grams PO ONCE 238 grams 0RF Z12.11 - Encounter for screening for malignant neoplasm of colon Coding Level of Care Code Est Pt Level 4 (91192) Diagnoses History of colon resection Z90.49 Screening for colon cancer Z12.11 Generalized abdominal pain R10.84 Abdominal location: generalized History of ventral hernia repair Z98.890; Z87.19 History of inguinal hernia repair Z98.890; Z87.19 History of colonoscopy with polypectomy Z98.890; Z86.0100 Time Spent (min) 35 Comment 25 minutes spent with patient and additional 10 minutes spent reviewing her records
--- OUTSIDE RECORDS SUMMARY | 2024-03-21 16:19 | XMS_ITS | Clinical Summary ---
Author Organization [facility] Address [id number] [place] [id number] Care Team Providers Care Human Factors Specialist Name Role Phone Johan Whitney MD Primary Care Provider [phone] Surgical History Surgery Date Site/Laterality Comments INCISIONAL HERNIA REPAIR 01/21/2018 PROCEDURE: CO IMPLANT MESH OPN HERNIA RPR/DEBRIDEMENT CLOSURE; COMMENT: Repair of multiple recurrent incisional hernias with mesh; Dr. Griffiths OTHER SURGICAL HISTORY 10/24/2021 Left PROCEDURE: CO RPR 1ST INGUN HRNA AGE 5 YRS/> INCARCERATED; COMMENT: open repair LEFT inguinal hernia w/ prolene hernia system mesh ultralight [facility] History Medical History Date Comments Hypertension 03/10/2011 DX:Hypertension GERD (gastroesophageal reflux disease) 03/10/2011 DX:GERD (gastroesophageal reflux disease) Family History Medical History Relation Name Comments CABG Brother 33 Breast cancer Neg Hx Colon cancer Neg Hx Ovarian cancer Neg Hx Relation Name Status Comments Brother Social History Tobacco Use Types Packs/Day Years Used Date Smoking Tobacco: Never Smokeless Tobacco: Never Alcohol Use Standard Drinks/Week Comments Not Currently 0 (1 standard drink = 0.6 oz pur e alcohol) Sex and Gender Information Value Date Recorded Sex Assigned at Not on file Gender Identity Not on file Sexual Orientation Not on file Obstetrics History Last Filed Vital Signs Vital Sign Reading Time Taken Comments Blood Pressure 176/109 05/18/2022 8:19 AM EDT Pulse 78 05/18/2022 8:19 AM EDT Temperature - - Respiratory Rate - - Oxygen Saturation - - Inhaled Oxygen Concentration - - Weight 68 kg (150 lb) 05/18/2022 8:19 AM EDT Height 172.7 cm (5' 8 ) 05/18/2022 8:19 AM EDT Body Mass Index 22.81 05/18/2022 8:19 AM EDT Plan of Treatment Health Maintenance Due Date Last Done Comments DTaP,Tdap,and Td Vaccines (1 - Tdap) 1964 Zoster Vaccines (1 of 2) 1995 Pneumococcal Vaccine: 65+ Ye ars (1 of 1 - PCV) 2010 RSV Immunization Patients 60 + Years Old (1 - 1-dose 75+ series) 2020 Cholesterol Screening (Lipid Panel) 02/05/2022 Depression Screening 02/05/2022 Falls Risk Assessment 02/05/2022 Hepatitis C Screening 02/05/2022 Osteoporosis Screening (Bone Density Screening) 02/05/2022 Social Influencers of Health Screening 02/05/2022 Hypertension/CHF/CAD Annual BMP Blood Test 02/07/2022 COVID-19 Vaccine ( - 2023-2 5 season) 2023 Influenza Vaccine (#1) 2023 HIB Vaccines Aged Out No longer eligi ble based on patient's age to complete this topic HPV Vaccines Aged Out No longer eligi ble based on patient's age to complete this topic Hepatitis A Vaccines Aged Out No long er eligible based on patient's age to complete this topic Hepatitis B Vaccines Aged Out No long er eligible based on patient's age to complete this topic IPV Vaccines Aged Out No longer eligi ble based on patient's age to complete this topic MMR Vaccines Aged Out No longer eligi ble based on patient's age to complete this topic Meningococcal ACWY Vaccine Aged Out N o longer eligible based on patient's age to complete this topic RSV Immunization Patients Un alin 20 months Aged Out No longer eligible b ased on patient's age to complete this topic Varicella Vaccines Aged Out No longer eligible based on patient's age to complete this topic Care Teams Human Factors Specialist Relationship Specialty Start Date End Date Johan Whitney MD [address] [place] [address] PCP - General 05/09/08
== END 2024-03-21 16:08 | disposition home or self-care (01) ==
PROVIDERS: PCP Family Medicine; Visit Provider Nurse Practitioner Family
DX: R10.84 Generalized abdominal pain (principal); Z90.49 Acquired absence of other specified parts of digestive tract; Z87.19 Personal history of other diseases of the digestive system; Z86.0100 Personal history of colon polyps, unspecified
CPT/HCPCS: 99214

== ENCOUNTER → 2024-03-21 15:10 | Outpatient (BNVA) | payer MEDICARE, SELFPAY | PROVIDERS: PCP Family Medicine; Visit Provider Nurse Practitioner Family | DX: Z12.11 Encounter for screening for malignant neoplasm of colon (principal); R10.84 Generalized abdominal pain; Z90.49 Acquired absence of other specified parts of digestive tract; Z98.890 Other specified postprocedural states; Z87.19 Personal history of other diseases of the digestive system; Z86.0100 Personal history of colon polyps, unspecified | CPT/HCPCS: 99212 ==

== ENCOUNTER 2024-04-07 13:00 | Outpatient (REF) | payer MEDICARE, SELFPAY | END 2024-04-07 13:01 | disposition home or self-care (01) | LOC: HO.CT 13:00 | PROVIDERS: PCP Family Medicine; Visit Provider Nurse Practitioner Family | DX: R10.9 Unspecified abdominal pain (principal); Z98.890 Other specified postprocedural states; Z90.49 Acquired absence of other specified parts of digestive tract; Z86.0100 Personal history of colon polyps, unspecified | CPT/HCPCS: 74261 ==

== ENCOUNTER → 2024-04-07 13:02 | Outpatient (BNV) | payer MEDICARE, SELFPAY | PROVIDERS: PCP Family Medicine; Visit Provider Radiology Diagnostic Radiology | DX: K57.30 Diverticulosis of large intestine without perforation or abscess without bleeding (principal); Z90.49 Acquired absence of other specified parts of digestive tract | CPT/HCPCS: 74261 ==

== ENCOUNTER 2024-05-30 11:41 | Outpatient (AMB) | payer MEDICARE, SELFPAY ==
--- NOTE | 2024-05-30 12:17 | MHC.PC.OV ---
Vital Signs 05/30/24 12:30 05/30/24 12:49 Height 5 ft 7 in Weight 148 lb 2 oz BMI 23.2 BP 170/90 H 170/90 H Blood Pressure Location Lt brachial Lt brachial Position Sitting Sitting Respiration 16 Pulse 74 Pulse Source Pulse Oximeter Temp 98.5 F Temp Source Oral Pulse Oximetry (%) 98 Oxygen Delivery Method Room Air Intake Visit Reasons: Huge pimple left arm Intake Note: patient is scheduled for red rash causing her discomfort. Chinese Language Professor Required: No Allergies No Known Allergies Allergy (Verified 05/30/24 12:28) Medication List - Last Reconciled 05/30/24 by Roman Peterson MD acetaminophen 650 mg (2 x 325 mg) PO Q6H PRN 30 days alendronate 70 mg PO QWEEK 28 days bisacodyl (Dulcolax (bisacodyl)) 20 mg (4 x 5 mg) PO ONCE 1 day cetirizine (All Day Allergy (cetirizine)) 10 mg PO DAILY PRN 30 days cholecalciferol (vitamin D3) 50 mcg PO DAILY 90 days losartan 50 mg PO DAILY 90 days omeprazole 20 mg PO DAILY PRN 90 days polyethylene glycol 3350 (Miralax) 238 grams PO ONCE prednisone 4 tabs daily for 4 days, 3 tabs daily for 2 days, 2 tabs daily for 2 days, 1 tab daily for 2 days PO daily; 10 days Tobacco use date assessed: 09/24/23 Dental Screening Dental Screen Date: 09/24/23 HPI Huge pimple left arm HPI Details 79 y/o female presents today with complaints of a rash on her L arm. Blood pressure today 170/90, 74p. She is on losartan 50mg daily. [facility] Medical History Arthritis COVID-19 vaccine administered Hx of diverticulitis of colon Depression GERD (gastroesophageal reflux disease) Hyperlipidemia HTN (hypertension) Surgical History History of ventral hernia repair History of colon resection History of esophagogastroduodenoscopy (EGD) H/O colonoscopy History of incisional hernia repair History of partial colectomy History of surgery on left wrist Family History Father No problems noted. Mother No problems noted. Brother No problems noted. Sister No problems noted. Sister No problems noted. Son No problems noted. Social History (Reviewed 03/21/24 @ 15:21 by Kunal Back [facility]) Housing: House Are you a primary health care manager to a significant other at home: No Do you presently have visiting nurse or other home services: No Alcohol intake: never Patient Tobacco Use Status: Never used Tobacco e-Cigarette/Vaping Use: Never Used Advance Directives Date on File: 08/10/20 service: No Current occupational status: employed Current occupation: [employer] Current occupational exposures/hazards: No Cognitive needs: No Hearing needs: No Vision needs: No Questionnaire PHQ-9 Over the last 2 weeks, how often have you been bothered by any of the following problems? 1. Little interest or pleasure in doing things: not at all 2. Feeling down, depressed, or hopeless: not at all 3. Trouble falling or staying asleep, or sleeping too much: not at all 4. Feeling tired or having little energy: not at all 5. Poor appetite or overeating: not at all 6. Feeling bad about yourself - or that you are a failure or have let yourself or your family down: not at all 7. Trouble concentrating on things, such as reading the newspaper or watching television: not at all 8. Moving or speaking so slowly that other people could have noticed. Or the opposite - being so fidgety or restless that you have been moving around a lot more than usual: not at all 9. Thoughts that you would be better off or of hurting yourself in some way: not at all Total score: 0 Source: Developed by Drs. Colt Banks, Padmini Anderson, Liborio Sofia and colleagues, with an educational andrea from [employer]. Thrive Questionnaire Date Thrive assessed: 09/24/23 I am a: Patient What is your living situation today?: I have a steady place to live Within the past 12 months, did the food you bought not last and you didn't have the money to get more?: Never true Within the past 12 months, did you worry whether your food would run out before you got money to buy more?: Never true Do you have trouble paying for medicines?: No Do you have trouble getting transportation to medical appointments?: No Do you have trouble paying your heating and electricity bill?: No Do you have trouble taking care of your child, family member or friend?: No Do you have trouble with day-to-day activities such as bathing, preparing meals, shopping, managing finances, etc.?: No Are you currently unemployed and looking for a job?: No Are you interested in more education?: No Please select the resources that you would like help with: None Currently or been in a relationship where the following occur: No concerns reported THRIVE Score: 0 AUDIT C Alcohol Use Questionnaire (AUDIT-C) 1. How often do you have a drink containing alcohol?: Monthly or less 2. How many drinks containing alcohol do you have on a typical day when you are drinking?: 1 or 2 3. How often do you have six or more drinks on one occasion?: Never Total Score: 1 VIVIANA-7 AMB Questionnaire VIVIANA-7 Date VIVIANA - 7 assessed: 09/24/23 Feeling nervous, anxious, or on edge: 0 = Not at all Not being able to stop or control worryin = Not at all Worrying too much about different things: 1 = Several days Trouble relaxin = Not at all Being so restless that it is hard to sit still: 0 = Not at all Becoming easily annoyed or irritable: 0 = Not at all Feeling afraid as if something awful might happen: 0 = Not at all Total VIVIANA-7 score (0-4 normal; 5-9 mild; 10-14 moderate; 15-21 severe): 1 Source: Developed by Drs. Colt Banks, Padmini Anderson, Liborio Sofia and colleagues, with an educational andrea from [employer]. Review of Systems Const Denies chills, Denies fatigue, Denies fever(s), Denies headache(s) and Denies weakness ENT Denies dizziness and Denies headache(s) Card Denies dyspnea Resp Denies cough, Denies dyspnea, Denies wheezing and Denies other (shortness of breath) Musc Denies numbness and Denies tingling Neuro Denies dizziness, Denies headache(s), Denies numbness, Denies tingling and Denies weakness Psych Denies anxiety and Denies depression Endo Denies fatigue Aller/Immun Denies wheezing Physical exam (Primary Care) Vital Signs: Last Vital Signs Temp 98.5 F 05/30/24 12:30 Pulse 74 05/30/24 12:30 Resp 16 05/30/24 12:30 BP 170/90 H 05/30/24 12:49 Pulse Ox 98 05/30/24 12:30 Oxygen Delivery Method Room Air 05/30/24 12:30 BMI result Body Mass Index 23.2 Tobacco/Smoking Status: Tobacco use Status Tobacco use date assessed 09/24/23 05/30/24 12:19 Patient Tobacco Use Status Never used Tobacco 05/30/24 12:19 e-Cigarette/Vaping Use Never Used 05/30/24 12:19 PHQ-9: PHQ-9 Score PHQ-9: Total score 0 05/30/24 12:49 Thrive Assessment: Date of Thrive Assessment Date Thrive assessed 09/24/23 05/30/24 12:19 Currently or been in a relationship where the following occur: No concerns reported Const General: well developed; No acute distress Nutritional Appearance: well nourished Orientation/consciousness: patient oriented x3 [facility] Head: Yes normocephalic and Yes atraumatic Eyes General: appearance normal, both eyes and all related structures Pupils: Equal, round and reactive pupils present EOM: EOMs intact bilaterally Resp Effort & Inspection: normal respiratory effort Neuro General: patient oriented x3 and gait normal Cranial nerves: Yes Equal, round and reactive pupils present Psych Affect: normal affect Coding Level of Care Code Est Pt Level 3 (97887) Diagnoses Rash R21 Essential hypertension I10 Assessment & Plan Assessment & Plan (1) Rash: Code(s): R21 - Rash and other nonspecific skin eruption Category: Medical Plan: Patient?has?patchy?pink?rash?on?forehead?and?cheeks,?forearms?and?legs. Has?tried?betamethasone?ointment?with?little?improvement. Tried?prednisone?which?helped?but?rash?has?returned Her?son?says?that?this treatment?pattern has?been?repeated?before. Will?have?her?repeat?prednisone?and?still?use?the?ointment.??Will?also?have?her?try?cetirizine?OTC Checking?lab?work?as?this?may?represent?an?autoimmune?disorder, and?referring?her?to?Dermatology Will?follow-up?with?patient?and?son?by?telemedicine?next?week (2) Essential hypertension: Code(s): I10 - Essential (primary) hypertension Category: Medical Plan: Blood?pressure?is?high Have?had?many?discussions?with?patient?and?her?son?and?they?disagree?with?goals?for?controlled?blood?pressure. She?says?that?she?feels?dizzy?when?systolic?blood?pressures?less?than?130.??We?had?discussed?previously?that?we?would?work?for?a?goal?of?systolic?blood?pressures?between?130?and?140?and?diastolic?blood?pressures?less?than?90. She?has?not?been?taking?her?losartan?except?when?blood?pressures?are?very?high.??Son?says?systolic?blood?pressures?are?frequently?in?the?140s. Blood?pressure?today?likely?secondary?to?prednisone?use. We?discussed?that?she?will?take?losartan?each?day?while?using?prednisone. ?Some?and?patient?agree. Orders: Orders Erythrocyte Sedimentation Rate Today R21 - Rash and other nonspecific skin eruption Lipid Panel Today Z00.00 - Encounter for general adult medical examination without abnormal findings Free T4 (Free Thyroxine) Today E03.9 - Hypothyroidism, unspecified, R21 - Rash and other nonspecific skin eruption Triiodothyronine T3 Total Today E03.9 - Hypothyroidism, unspecified, R21 - Rash and other nonspecific skin eruption Complete Blood Count Auto Diff Today R21 - Rash and other nonspecific skin eruption, Z00.00 - Encounter for general adult medical examination without abnormal findings Comprehensive Vanzant. Panel Fast Today R21 - Rash and other nonspecific skin eruption, Z00.00 - Encounter for general adult medical examination without abnormal findings CRP High Sensitivity Today R21 - Rash and other nonspecific skin eruption GARTH Reflex Titer and Pattern Today R21 - Rash and other nonspecific skin eruption Thyroid Stimulating Hormone Today E03.9 - Hypothyroidism, unspecified, R21 - Rash and other nonspecific skin eruption Microalbumin, Random (w Creat) Today I10 - Essential (primary) hypertension, R21 - Rash and other nonspecific skin eruption Referrals Dermatology Referral R21 - Rash and other nonspecific skin eruption Medications: New cetirizine (All Day Allergy (cetirizine)) 10 mg PO DAILY PRN 30 tabs 0RF allergy symptoms 30 days prednisone 4 tabs daily for 4 days, 3 tabs daily for 2 days, 2 tabs daily for 2 days, 1 tab daily for 2 days PO daily; 28 tabs 0RF 10 days Refilled losartan 50 mg PO DAILY 90 tabs 3RF 90 days
[2024-05-30 12:30] VITALS: BP 170/90; PULSE 74; RESP 16; TEMP 36.9; O2SAT 98; BMI 23.2
[2024-05-30 12:49] VITALS: BP 170/90
--- OUTSIDE RECORDS SUMMARY | 2024-05-30 13:44 | XMS_ITS | Clinical Summary ---
Author Organization [facility] Address [id number] [place] [id number] Care Team Providers Care Dance Teacher Name Role Phone Joahn Whitney MD Primary Care Provider [phone]- [phone] Surgical History Surgery Date Site/Laterality Comments INCISIONAL HERNIA REPAIR 01/21/2018 PROCEDURE: SD IMPLANT MESH OPN HERNIA RPR/DEBRIDEMENT CLOSURE; COMMENT: Repair of multiple recurrent incisional hernias with mesh; Dr. Griffiths OTHER SURGICAL HISTORY 10/24/2021 Left PROCEDURE: SD RPR 1ST INGUN HRNA AGE 5 YRS/> INCARCERATED; COMMENT: open repair LEFT inguinal hernia w/ prolene hernia system [facility] Medical History Date Comments Hypertension [...] drink = 0.6 oz pur e alcohol) Comments Unknown Sex and Gender Information Value Date Recorded Sex Assigned at Not on file Legal Sex Female 6:10 PM EST Gender Identity Not on file Sexual Orientation [...] DTaP,Tdap,and Td Vaccines (1 - Tdap) 1964 Pneumococcal Vaccine: 50+ Ye ars (1 of 1 - PCV) 1995 Zoster Vaccines (1 of 2) 1995 RSV Immunization Adult Patie nts (1 - 1-dose 75+ series) 2020 Cholesterol [...] patient's age to complete this topic Meningococcal B Vacine Aged Out No lo nger eligible based on patient's age to complete this topic RSV Immunization Patients Un alin 20 months Aged Out No longer eligible b ased on patient's age to complete this topic Varicella Vaccines Aged Out No longer eligible based on patient's age to complete this topic Care Teams Dance Teacher Relationship Specialty Start Date End Date Johan Whitney MD [address] [place], [place] PCP - General 05/09/08
== END 2024-05-30 13:00 | disposition home or self-care (01) ==
LOC: HO.HMCFM 11:42
PROVIDERS: PCP Family Medicine; Visit Provider Family Medicine
DX: R21 Rash and other nonspecific skin eruption (principal); I10 Essential (primary) hypertension

== ENCOUNTER 2024-05-30 13:08 | Outpatient (REF) | payer MEDICARE, SELFPAY ==
--- OUTSIDE RECORDS SUMMARY | 2024-05-30 15:00 | XMS_ITS | Clinical Summary ---
Author Organization [facility] Address [id number] [place] [id number] Care Team Providers Care Continuous Improvement Intern Name Role Phone Johan Whitney MD Primary Care Provider [phone]- [phone] Surgical History Surgery Date Site/Laterality Comments INCISIONAL HERNIA REPAIR 01/21/2018 PROCEDURE: [place] IMPLANT MESH OPN HERNIA RPR/DEBRIDEMENT CLOSURE; COMMENT: Repair of multiple recurrent incisional hernias with mesh; Dr. Griffiths OTHER SURGICAL HISTORY 10/24/2021 Left PROCEDURE: IA RPR 1ST INGUN HRNA AGE 5 YRS/> INCARCERATED; COMMENT: open repair LEFT inguinal hernia w/ prolene hernia system [facility] History Medical History Date [...] age to complete this topic Care Teams Continuous Improvement Intern Relationship Specialty Start Date End Date Johan Whitney MD [address] [place], [place] PCP - General 05/09/08
[2024-05-30 17:39] LABS: MANUAL DIFF FLAG NO
[2024-05-30 17:51] LABS: Appearance Urine Turbid; Color Urine Dark Yellow; Glucose Urine UA Negative (Negative); Leukocyte Esterase Urine Moderate (2+) (Negative); Nitrite Urine Negative (Negative); UMIC TRIGGER UA YES; Urine Blood Trace (Negative); Urine Ketones Trace mg/dL (Negative); Urine Protein Negative (Neg-Trace)
[2024-05-30 17:55] LABS: Basophils Absolute Auto 0.1 X10*3/uL (0.0-0.2); Basophils Percent Auto 1.4 % (0-2); Eosinophils Absolute Auto 0.2 X10*3/uL (0.0-0.4); Eosinophils Percent Auto 4.5 % (0-4); Hematocrit 45.8 % (37.0-47.0); Hemoglobin 15.5 g/dl (12.0-16.0); Imm Gran Abs Auto 0.01 X10*3/uL (0.00-0.03); Imm Gran Pct Auto 0.3 % (0.0-0.4); Lymphocytes Absolute Auto 1.5 X10*3/uL (1.2-4.9); Lymphocytes Percent Auto 43.3 % (20-40); Mean Corpuscular HGB Conc 33.8 g/dl (31.0-35.0); Mean Corpuscular Hemoglobin 33.5 pg (27.0-33.0); Mean Corpuscular Volume 99.1 fL (80.0-98.0); Mean Platelet Volume 9.4 fL (9.4-12.3); Monocytes Absolute Auto 0.5 X10*3/uL (0.1-1.2); Monocytes Percent Auto 12.9 % (2-11); Neutrophils Absolute Auto 1.3 x10*3/uL (2.0-8.3); Neutrophils Percent Auto 37.6 % (45-73); Platelet Count 183 X10*3/uL (160-400); Red Blood Count 4.62 X10*6/uL (4.20-5.50); Red Cell Distribution Width 12.3 % (11.0-16.0); White Blood Count 3.6 X10*3/uL (4.8-10.8)
[2024-05-30 18:03] LABS: Alanine Aminotransferase 18 U/L (0-31); Albumin Level 4.2 g/dL (3.5-5.0); Alkaline Phosphatase 57 U/L (39-117); Anion Gap 10 (12-20); Aspartate Amino Transferase 32 U/L (5-31); Bilirubin Total 0.9 mg/dL (0.0-1.0); Blood Urea Nitrogen 13 mg/dL (9-16); Calcium 9.3 mg/dL (8.4-10.2); Carbon Dioxide 27 mmol/L (22-29); Chloride 108 mmol/L (96-108); Cholesterol 256 mg/dL (<200); Estimated Glomerular Filt Rate > 60; Glucose Fasting 88 mg/dL (60-99); HDL Cholesterol 77 mg/dL (>40); LDL Cholesterol Calculated 150 mg/dL (<100); Lipase 37 U/L (8-78); Potassium 3.5 mmol/L (3.3-5.1); Sodium 141 mmol/L (135-145); Total Protein 7.5 g/dL (6.5-8.0); Triglycerides 145 mg/dL (<150)
[2024-05-30 18:05] LABS: Bacteria Urine 4+ (None Seen); Calcium Oxalate Crystals Urine Present; Hyaline Casts Urine 0-2 /LPF (0-2); RBC Urine 0-2 /HPF (0-2); WBC Urine 21-50 /HPF (0-5)
[2024-05-30 18:20] LABS: Creatinine Urine 170.14 mg/dL; Microalbum/Creatinine Ratio Ur 19.3 ug/mg cr (<30)
[2024-05-30 18:22] LABS: Free T4 (Free Thyroxine) 1.03 ng/dL (0.71-1.85); TSH reflex Free T4 0.49 uIU/mL (0.32-4.0); Thyroid Stimulating Hormone 0.49 uIU/mL (0.32-4.0); Vitamin D 25-OH Total 86.4 ng/mL (>30)
[2024-05-30 18:39] LABS: Erythrocyte Sedimentation Rate 7 MM/HR (0-20)
[2024-06-02 04:13] LABS: Triiodothyronine T3 Total 107 ng/dL (76-181)
[2024-06-03 01:12] LABS: CRP High Sensitivity 0.7 mg/L
[2024-06-04 10:38] LABS: Anti Nuclear Antibody Screen NEGATIVE (NEGATIVE)
== END 2024-05-30 13:09 | disposition home or self-care (01) ==
LOC: HO.WFDLDS 13:08
PROVIDERS: Referring Provider Nurse Practitioner Family; Visit Provider Family Medicine
DX: Z00.00 Encounter for general adult medical examination without abnormal findings (principal); I10 Essential (primary) hypertension; E55.9 Vitamin D deficiency, unspecified; R79.89 Other specified abnormal findings of blood chemistry; R21 Rash and other nonspecific skin eruption; E03.9 Hypothyroidism, unspecified; R10.9 Unspecified abdominal pain
CPT/HCPCS: 36415; 80053; 80061; 81001; 82043; 82306; 82570; 83690; 84439; 84443; 84480; 85025; 85652; 86038; 86141; 99212

== ENCOUNTER 2024-06-11 15:51 | Outpatient (AMB) | payer MEDICARE, SELFPAY ==
--- NOTE | 2024-06-11 16:31 | A.OFFPC_ITS ---
Vital Signs 06/11/24 16:33 06/11/24 16:38 Height 5 ft 7 in Weight 149 lb 2 oz BMI 23.4 BP 146/87 H 130/64 Blood Pressure Location Lt brachial Lt brachial Position Sitting Sitting Respiration 14 Pulse 81 Pulse Source Pulse Oximeter Temp 98.1 F Temp Source Oral Pulse Oximetry (%) 97 Oxygen Delivery Method Room Air Intake Visit Reasons: FU LABS Intake Note: patient is scheduled to review labs with patient Small Arms Artillery Repairer Required: Yes Small Arms Artillery Repairer Language: Setswana Small Arms Artillery Repairer Name: pt refused Assistant Professor Nurse Education: Present Accompanied by: Son Allergies No Known Allergies Allergy (Verified 06/11/24 16:32) Tobacco use date assessed: 09/24/23 Dental Screening Dental Screen Date: 09/24/23 HPI FU LABS HPI Details 79 y/o female presents to f/u labs. Will follow-up on lab work regarding inflammatory and autoimmune markers. Gave her a script for prednisone and she can continue previously prescribed betamethasone. Also should try OTC antihistamine. Patient and son agreed to use losartan while she is on prednisone as blood pressures get high. Also referred her to Dermatology. Labs drawn 05/30/24. Reviewed labs with pt. Elevated AST of 32. Triglycerides 145. TC 256. LDL 150. HDL 77. Blood pressure today 130/64, 81p. PFSH Medical History Arthritis COVID-19 vaccine administered Hx of diverticulitis of colon Depression GERD (gastroesophageal reflux disease) Hyperlipidemia HTN (hypertension) Surgical History History of ventral hernia repair History of colon resection History of esophagogastroduodenoscopy (EGD) H/O colonoscopy History of incisional hernia repair History of partial colectomy History of surgery on left wrist Family History Father No problems noted. Mother No problems noted. Brother No problems noted. Sister No problems noted. Sister No problems noted. Son No problems noted. Social History Housing: House Are you a primary respiratory care specialist to a significant other at home: No Do you presently have visiting nurse or other home services: No Alcohol intake: never Patient Tobacco Use Status: Never used Tobacco e-Cigarette/Vaping Use: Never Used Advance Directives Date on File: 08/10/20 service: No Current occupational status: employed Current occupation: [employer] Current occupational exposures/hazards: No Cognitive needs: No Hearing needs: No Vision needs: No Questionnaire Thrive Questionnaire Date Thrive assessed: 09/24/23 VIVIANA-7 AMB Questionnaire VIVIANA-7 Date VIVIANA - 7 assessed: 09/24/23 Source: Developed by Drs. Colt Banks, Padmini Anderson, Liborio Sofia and colleagues, with an educational andrea from [employer]. Review of Systems Const Denies chills, Denies fatigue, Denies fever(s), Denies headache(s) and Denies weakness ENT Denies dizziness and Denies headache(s) Card Denies dyspnea Resp Denies cough, Denies dyspnea, Denies wheezing and Denies other (shortness of breath) Musc Denies numbness and Denies tingling Skin/Breast Reports rash Neuro Denies dizziness, Denies headache(s), Denies numbness, Denies tingling and Denies weakness Psych Denies anxiety and Denies depression Endo Denies fatigue Aller/Immun Denies wheezing Physical exam (Primary Care) Vital Signs: Last Vital Signs Temp 98.1 F 06/11/24 16:33 Pulse 81 06/11/24 16:33 Resp 14 06/11/24 16:33 BP 130/64 06/11/24 16:38 Pulse Ox 97 06/11/24 16:33 Oxygen Delivery Method Room Air 06/11/24 16:33 BMI result Body Mass Index 23.4 Tobacco/Smoking Status: Tobacco use Status Tobacco use date assessed 09/24/23 06/11/24 16:38 Patient Tobacco Use Status Never used Tobacco 06/11/24 16:38 e-Cigarette/Vaping Use Never Used 06/11/24 16:38 Thrive Assessment: Date of Thrive Assessment Date Thrive assessed 09/24/23 06/11/24 16:38 Const General: well developed; No acute distress Nutritional Appearance: well nourished Orientation/consciousness: patient oriented x3 [facility] Head: Yes normocephalic and Yes atraumatic Eyes General: appearance normal, both eyes and all related structures Pupils: Equal, round and reactive pupils present EOM: EOMs intact bilaterally Resp Effort & Inspection: normal respiratory effort Neuro General: patient oriented x3 and gait normal Cranial nerves: Yes Equal, round and reactive pupils present Psych Affect: normal affect Coding Level of Care Code Est Pt Level 4 (15719) Diagnoses Essential hypertension I10 Hyperlipidemia E78.5 Rash R21 Assessment & Plan Assessment & Plan (1) Essential hypertension: Code(s): I10 - Essential (primary) hypertension Category: Medical Plan: Blood?pressure?is?better?today. Goal?is?less?than?140/90 Patient?appears?to?have?white?coat?syndrome?as?her?blood?pressures?tend?to?be?no rmal?at?home,?per?her?son. Asked?her?to?bring?in?a?log?blood?pressures?prior?to?next?visit (2) Hyperlipidemia: Code(s): E78.5 - Hyperlipidemia, unspecified Category: Medical Plan: Lipids?are?elevated. Patient?currently?has?rash?and?awaiting resolution?of?this?prior?to?starting?medication. (3) Rash: Code(s): R21 - Rash and other nonspecific skin eruption Category: Medical Plan: Ongoing?rash. Inflammatory?markers?and?GARTH?are?negative Had?tried?steroids without?improvement She?notes?that moisturizers?symptoms. She?is?already?referred?to?Dermatology?and?has?an? appointment.??She?will?call?or?return?to?office?if?any?significant?changes.
[2024-06-11 16:33] VITALS: BP 146/87; PULSE 81; RESP 14; TEMP 36.7; O2SAT 97; BMI 23.4
[2024-06-11 16:38] VITALS: BP 130/64
--- OUTSIDE RECORDS SUMMARY | 2024-06-11 18:10 | XMS_ITS | Clinical Summary ---
Author Organization [facility] Address [id number] [place] [phone] Care Team Providers Care Force Dispatcher Name Role Phone Johan Whitney MD Primary Care Provider [phone]- [phone] Surgical History Surgery Date Site/Laterality Comments INCISIONAL HERNIA REPAIR 01/21/2018 PROCEDURE: [place] IMPLANT MESH OPN HERNIA RPR/DEBRIDEMENT CLOSURE; COMMENT: Repair of multiple recurrent incisional hernias with mesh; Dr. Griffiths OTHER SURGICAL HISTORY 10/24/2021 Left PROCEDURE: OR RPR 1ST INGUN HRNA AGE 5 YRS/> INCARCERATED; COMMENT: open repair LEFT inguinal hernia w/ prolene hernia system [facility] History Medical History Date Comments [...] - 2023-2 5 season) 2023 Influenza Vaccine (Season Ended) 2024 HIB Vaccines Aged Out No longer eligi [...] age to complete this topic Meningococcal B Vaccine Aged Out No l onger eligible based on patient's age to complete this topic RSV Immunization Patients Un alin 20 months Aged Out No longer eligible b ased on patient's age to complete this topic Varicella Vaccines Aged Out No longer eligible based on patient's age to complete this topic Care Teams Force Dispatcher Relationship Specialty Start Date End Date Johan Whitney MD [address], [place] PCP - General 05/09/08
== END 2024-06-11 17:05 | disposition home or self-care (01) ==
LOC: HO.HMCFM 15:52
PROVIDERS: PCP Family Medicine; Visit Provider Family Medicine
DX: I10 Essential (primary) hypertension (principal); E78.5 Hyperlipidemia, unspecified; R21 Rash and other nonspecific skin eruption

== ENCOUNTER → 2024-06-11 15:51 | Outpatient (BNVA) | payer MEDICARE, SELFPAY | PROVIDERS: PCP Family Medicine; Visit Provider Family Medicine | DX: I10 Essential (primary) hypertension (principal); E78.5 Hyperlipidemia, unspecified; R21 Rash and other nonspecific skin eruption | CPT/HCPCS: 99212 ==

== ENCOUNTER 2024-09-15 15:54 | Outpatient (AMB) | payer MEDICARE, SELFPAY ==
--- NOTE | 2024-09-15 16:02 | A.OFFVIS_ITS ---
Vital Signs 09/15/24 16:11 Height 5 ft 7 in Weight 147 lb BMI 23.0 BP 142/88 H Blood Pressure Location Rt brachial Position Sitting Pulse 84 Pulse Source Pulse Oximeter Pulse Oximetry (%) 97 Oxygen Delivery Method Room Air Intake Visit Reasons: 6m Intake Note: Est pt for mgmt of chronic abd pain. CC: Pt denies any changes or concerns since last visit. Child Care Centre Director Required: Yes Child Care Centre Director Services: Child Care Centre Director Offered & Declined Accompanied by: Son Allergies No Known Allergies Allergy (Verified 06/11/24 16:32) HPI HPI 6m: Details: LAST VISIT History of colon resection Screening for colon cancer Abdominal pain History of ventral hernia repair History of inguinal hernia repair History of colonoscopy with polypectomy Plan Due to previous history of colon perforation during colonoscopy, colon resection, history of TA polyps we will send patient for colonography. At this point patient is a high-risk to undergo procedure. Patient was told in the past GI at [facility] that she should never get a colonoscopy. Patient does report abdominal pain and bloating. Patient will follow-up in 6 months unless abnormal colonography. Patient will call our office if she will have any GI concerning symptoms. Patient is agreeable to this plan and verbalizes understanding of instructions. She was given the opportunity to ask questions and all questions answered. ? Thank you for allowing me to participate in her care Orders CT colonography 03/21/24 R10.9, Z86.0100, Z90.49, Z98.890 New bisacodyl (Dulcolax (bisacodyl)) take 4 tabs at noon the day before your colonoscopy 20 mg (4 x 5 mg) PO ONCE 4 tabs 0RF 1 day Z12.11 polyethylene glycol 3350 (Miralax) As directed by gastroenterology department at [facility] 238 grams PO ONCE 238 grams 0RF Z12.11 TODAY'S VISIT Patient is here today for follow-up. Patient reports that she has been doing fairly well since last visit. She is moving her bowels well. Denies any abdominal pain or discomfort at this time. Patient does reports that she changed her diet completely. She is following low FODMAP diet. States that she cooks her own meals and does not by any processed food. Patient denies melena, hematochezia, unintentional weight loss or ribbon like stools. Patient denies any dyspepsia, dysphagia or odynophagia. [facility] Medical History Arthritis COVID-19 vaccine administered Hx of diverticulitis of colon Depression GERD (gastroesophageal reflux disease) Hyperlipidemia HTN (hypertension) Surgical History History of ventral hernia repair History of colon resection History of esophagogastroduodenoscopy (EGD) H/O colonoscopy History of incisional hernia repair History of partial colectomy History of surgery on left wrist Family History Father No problems noted. Mother No problems noted. Brother No problems noted. Sister No problems noted. Sister No problems noted. Son No problems noted. Social History Housing: House Are you a primary manager of care to a significant other at home: No Do you presently have visiting nurse or other home services: No Alcohol intake: never Patient Tobacco Use Status: Never used Tobacco e-Cigarette/Vaping Use: Never Used Advance Directives Date on File: 08/10/20 service: No Current occupational status: employed Current occupation: Laundry Current occupational exposures/hazards: No Cognitive needs: No Hearing needs: No Vision needs: No Review of Systems Const Denies weight gain and Denies weight loss ENT Reports no additional complaints, Denies dysphagia and Denies odynophagia Card Reports no additional complaints Resp Reports no additional complaints GI Denies abdominal pain, Denies belching, Denies melena, Denies bloating, Denies change in bowel habits, Denies dysphagia, Denies excessive flatus, Denies dyspepsia, Denies heartburn, Denies diarrhea, Denies loose stools, Denies nausea, Denies odynophagia and Denies vomiting Reports no additional complaints Musc Reports no additional complaints Neuro Reports no additional complaints Psych Reports no additional complaints Endo Reports no additional complaints Physical Exam Vital Signs: Last Vital Signs Pulse 84 09/15/24 16:11 BP 142/88 H 09/15/24 16:11 Pulse Ox 97 09/15/24 16:11 Oxygen Delivery Method Room Air 09/15/24 16:11 BMI result Body Mass Index 23.0 Const General: healthy appearing, no acute distress and well developed Nutritional Appearance: well nourished Orientation/consciousness: patient oriented x3 Resp Effort & Inspection: normal respiratory effort, able to speak in complete sentences, no tracheal deviation and symmetric chest movement Auscultation: clear to auscultation bilaterally Cardio Rate: regular rate GI Other: Multiple old surgical scars Inspection: Yes normal to inspection and No distended Palpation (GI): Soft to palpation, not firm, nontender and No hepatosplenomegaly present Auscultation: normal bowel sounds General: Yes no CVA tenderness Back/Spine/Pelvis Back: no CVA tenderness Skin General skin exam: elasticity normal, turgor normal and dry skin Neuro General: patient oriented x3 Psych Appearance: grossly normal Mental Status: mental status grossly normal Assessment & Plan Assessment & Plan (1) GERD (gastroesophageal reflux disease): Code(s): K21.9 - Gastro-esophageal reflux disease without esophagitis Category: Medical Qualifiers: Esophagitis presence: esophagitis presence not specified Qualified Code(s): K21.9 - Gastro-esophageal reflux disease without esophagitis (2) History of colon resection: Code(s): Z90.49 - Acquired absence of other specified parts of digestive tract Category: Surgical (3) Elevated AST (SGOT): Code(s): R74.01 - Elevation of levels of liver transaminase levels Category: Medical (4) History of ventral hernia repair: Code(s): Z98.890 - Other specified postprocedural states; Z87.19 - Personal history of other diseases of the digestive system Category: Surgical (5) Abdominal pain: Code(s): R10.9 - Unspecified abdominal pain Category: Medical Qualifiers: Abdominal location: generalized Qualified Code(s): R10.84 - Generalized abdominal pain Plan Patient will continue avoiding dietary triggers. Follow FODMAP diet as discussed with patient in the past. Continue omeprazole. Avoid eating late at night. Staying upright for minimum 3 hours after meals discussed with patient. Follow-up in 6 months, sooner on as needed basis. Patient is agreeable to this plan and verbalizes understanding of instructions. She was given the opportunity to ask questions and all questions answered. Thank you for allowing me to participate in her care Coding Level of Care Code Est Pt Level 3 (56212) Diagnoses Gastroesophageal reflux disease, unspecified whether esophagitis present K21.9 Esophagitis presence: esophagitis presence not specified History of colon resection Z90.49 Elevated AST (SGOT) R74.01 History of ventral hernia repair Z98.890; Z87.19 Generalized abdominal pain R10.84 Abdominal location: generalized Time Spent (min) 25 Comment 15 minutes spent with patient and additional 10 minutes spent reviewing her records
[2024-09-15 16:11] VITALS: BP 142/88; PULSE 84; O2SAT 97; BMI 23.0
--- OUTSIDE RECORDS SUMMARY | 2024-09-15 16:18 | XMS_ITS | Clinical Summary ---
Author Organization [facility] Address [address] [place] [id number] Care Team Providers Care Sdv Pilot/Navigator/Dds Operator Name Role Phone Johan Whitney MD Primary Care Provider [phone] Surgical History Surgery Date Site/Laterality Comments INCISIONAL HERNIA REPAIR 01/21/2018 PROCEDURE: [facility] IMPLANT MESH OPN HERNIA RPR/DEBRIDEMENT CLOSURE; COMMENT: Repair of multiple recurrent incisional hernias with mesh; Dr. Griffiths OTHER SURGICAL HISTORY 10/24/2021 Left PROCEDURE: [facility] RPR 1ST INGUN HRNA AGE 5 YRS/> INCARCERATED; COMMENT: open repair LEFT inguinal hernia w/ prolene hernia system [facility] ult[facility] Medical History Date Comments [...] series) 2020 Cholesterol Screening (Lipid Panel) 02/05/2022 Falls Risk Assessment 02/05/2022 Hepatitis C Screening 02/05/2022 Osteoporosis Screening (Bone Density Screening) 02/05/2022 Social Influencers of Health Screening 02/05/2022 Hypertension/CHF/CAD Annual BMP Blood Test 02/07/2022 COVID-19 Vaccine ( - 2023-2 5 season) 2023 Depression Screening 02/27/2024 Influenza Vaccine (#1) 2024 HIB Vaccines Aged Out No longer [...] age to complete this topic Care Teams Sdv Pilot/Navigator/Dds Operator Relationship Specialty Start Date End Date Johan Whitney MD [address], [place] PCP - General 05/09/08
--- OUTSIDE RECORDS SUMMARY | 2024-09-15 16:18 | XMS_ITS | Clinical Summary ---
Author Organization [facility] Address [address] [place] [address] Phone Care Team Providers Care Director Of Residential Services Name Role Phone Unknown, Unknown Primary Care Provider Twilavajimmie lable Allergies No known active allergies Medications losartan (COZAAR) 25 MG tablet Take 1 tablet (25 mg total) by mouth daily. 90 tablet 1 09/13/2018 Active omeprazole (PRILOSEC) 20 MG capsule Take 1 capsule (20 mg total) by mouth daily. 90 capsule 1 09/13/2018 Active Active Problems Problem Noted Date Diagnosed Date Gastroesophageal reflux disease without esophagi tis 09/13/2018 Assessment & Plan (09/13/2018 5:07 PM EDT): Well-controlled, continue current medication. Primary osteoarthritis of both knees 09/13/2018 Assessment & Plan (09/13/2018 5:07 PM EDT): I offer the patient referral for physical therapy to help see if some strengthening exercise may minimize her pain but she is deferred. Essential hypertension 09/13/2018 Assessment & Plan (09/13/2018 5:06 PM EDT): Blood pressure is well controlled, continue current medication. Abdominal bloating 09/13/2018 Assessment & Plan (09/13/2018 5:08 PM EDT): Bloating is most likely related to changes after her herniorrhaphy and mesh placement. If the discomfort does not improve, I suggested that she speak with Dr. Griffiths. Immunizations Immunization Administration Dates Next Due Td (adult),2 Lf Tetanus Toxoid, PF, Adsorbed Family History Relation Status Comments Father Mother Son Alive Social History Tobacco Use Types Packs/Day Years Used Date Smoking Tobacco: Never Smokeless Tobacco: Never Alcohol Use Standard Drinks/Week Comments Yes 0 (1 standard drink = 0.6 oz pur e alcohol) rare Education Answer Date Recorded Are you interested in more education? Not on merari e 06/23/2022 Are you concerned about learning? Not on file 06/23/2022 No 06/23/2022 No 06/23/2022 Digital Access Answer Date Recorded No 07/22/2022 No 07/22/2022 No 07/22/2022 Reliable internet access at home? Not on file 07/22/2022 Device with a working camera? Not on file Comments Unknown Sex and Gender Information Value Date Recorded Sex Assigned at Not on file Legal Sex Female 3:27 PM EDT Gender Identity Not on file Sexual Orientation Not on file Last Filed Vital Signs Vital Sign Reading Time Taken Comments Blood Pressure 142/90 09/13/2018 4:26 PM EDT Pulse 74 09/13/2018 4:26 PM EDT Temperature 36.6 C (97.8 F) 09/13/2018 4:26 PM EDT Respiratory Rate - - Oxygen Saturation 99% 09/13/2018 4:26 PM EDT Inhaled Oxygen Concentration - - Weight 66.2 kg (146 lb) 09/13/2018 4:26 PM EDT Height 165.1 cm (5' 5 ) 09/13/2018 4:26 PM EDT Body Mass Index 24.3 09/13/2018 4:26 PM EDT Plan of Treatment Health Maintenance Due Date Last Done Comments BLOOD PRESSURE 1945 LIPID PANEL 1945 HEPATITIS C SCREENING 1963 COLOGUARD 1990 FIT TEST 1990 FOBT 1990 SIGMOIDOSCOPY 1990 VIRTUAL COLONOSCOPY 1990 PNEUMOCOCCAL VACCINES (50+ y ears) (1 of 1 - PCV) 1995 ZOSTER VACCINES (1 of 2) 1995 OSTEOPOROSIS SCREENING INITI AL (ONE-TIME) 2010 DEPRESSION SCREENING 09/14/2019 09/13/2018 CREATININE LEVEL 09/28/2019 09/27/2018 POTASSIUM LEVEL 09/28/2019 09/27/2018 Adult Td,Tdap Booster 12/14/2019 12/13/2009 RSV VACCINE (1 - 1-dose 75+ series) 2020 COLONOSCOPY 11/05/2022 11/05/2017 COLORECTAL CANCER SCREENING 11/05/2022 COVID-19 VACCINE (2 - 2023-2 5 season) 2023 06/29/2020 SMOKING STATUS SCREENING (On ce After 26 Yrs) Completed 09/13/2018 HEPATITIS A VACCINES Aged Out No long er eligible based on patient's age to complete this topic HIB VACCINES Aged Out No longer eligi ble based on patient's age to complete this topic MENINGOCOCCAL VACCINES (ACWY) Aged Out No longer eligible based on patient's age to complete this topic MENINGOCOCCAL VACCINES (B) Aged Out N o longer eligible based on patient's age to complete this topic Medical Devices Not on file Procedures Procedure Name Priority Date/Time Associated Diagnosis Comments BASIC METABOLIC PANEL Routine 09/27/2018 3:41 PM EDT Essential hypertension COLONOSCOPY FOR RESULT ENTRY ONLY Routine 11/05/2017 from Last 3 Months or Most Recently Relevant to Health Maintenance Results * (ABNORMAL) Basic metabolic panel (09/27/2018 3:41 PM EDT) SODIUM 139 133 - 146 mmol/L [facility] CHLORIDE 104 96 - 108 mmol/L [facility] POTASSIUM 3.7 3.3 - 5.1 mmol/L [facility] CO2 25 21 - 35 mmol/L [facility] BUN 16 6 - 19 mg/dL [facility] CREATININE 0.60 0.5 - 1.5 mg/dL [facility] GLUCOSE 112(H) 70 - 99 mg/dL [facility] CALCIUM 9.5 8.4 - 10.3 mg/dL [facility] EGFR 90 >59 mL/min/1.7 3m2 [facility] Comment:If patient is black, multiply result by 1.159. Estimated glomerular filtration rate calculated using the CKD-EPI equation. ANION GAP 14 10 - 20 mmol/L [facility] Blood 09/27/2018 3:41 PM EDT 09/27/2018 3:45 PM EDT Johan Whitney MD LAB BLOOD ORDERABLES Final Result [facility] [address] [place] [address] * COLONOSCOPY FOR RESULT ENTRY ONLY (11/05/2017) [facility] Colonoscopy ... us Historical Provider HEALTH MAINTENANCE Final Result from Last 3 Months or Most Recently Relevant to Health Maintenance Insurance [employer] [place]ESSICA [place]UÑEZ [id number] [employer] Care Teams Director Of Residential Services Relationship Specialty Start Date End Date Unknown, Unknown, PCP - General 12/19/19 Additional Source Comments The information contained in this document represents components of the legal health record. It is not the complete legal health record.[facility]
== END 2024-09-15 16:33 | disposition home or self-care (01) ==
PROVIDERS: PCP Family Medicine; Visit Provider Nurse Practitioner Family
DX: K21.9 Gastro-esophageal reflux disease without esophagitis (principal); Z90.49 Acquired absence of other specified parts of digestive tract; R74.01 Elevation of levels of liver transaminase levels; Z98.890 Other specified postprocedural states; Z87.19 Personal history of other diseases of the digestive system; R10.84 Generalized abdominal pain
CPT/HCPCS: 99213

== ENCOUNTER → 2024-09-15 15:54 | Outpatient (BNVA) | payer MEDICARE, SELFPAY | PROVIDERS: PCP Family Medicine; Visit Provider Nurse Practitioner Family | DX: K21.9 Gastro-esophageal reflux disease without esophagitis (principal); R74.01 Elevation of levels of liver transaminase levels; Z90.49 Acquired absence of other specified parts of digestive tract; Z98.890 Other specified postprocedural states; Z87.19 Personal history of other diseases of the digestive system; R10.84 Generalized abdominal pain | CPT/HCPCS: 99212 ==